=== PATIENT | female | born 1935 | race African-American/Black ===

== ENCOUNTER 2018-10-31 12:23 | Emergency (ER) | payer MEDICARE, MEDICAID ==
[2018-10-31 13:27] LABS: Bilirubin Negative (Negative); Blood, Urine Negative (Negative); Clarity CLEAR (Clear); Glucose, Urine (Dipstick) 100 mg/dL (Negative); Leukocyte Small (Negative); Nitrite Positive (Negative); Protein, Urine (Dipstick) Negative (Neg-Trace)
[2018-10-31 13:29] LABS: Bacteria/HPF 4+ HPF (None Seen); Hyaline Casts/LPF 0-3 HYALINE CAST LPF (0-3 Hyaline); Pathc Cast-AUWi Flag 0.29 (0-2.49); RBC/HPF 0-3 HPF (0-3)
[2018-10-31 13:42] LABS: Transitional Epithelial 0-3 HPF (0-3)
--- NOTE | 2018-10-31 14:21 | CT ---
CT BRAIN: Date: 10/31/18 PROVIDED CLINICAL HISTORY: Altered mental status. FINDINGS: Comparison made with the study dated 09/28/14. The ventricular system is unchanged in size and morphology. There is no evidence for intracranial hem orrhage or mass effect. Development of encephalomalacia involving the right parietooccipital region c ompatible with interval but now remote infarction. There is no shift to the midline structures. The b asilar cisterns appear patent. The extracranial soft tissues and osseous structures demonstrate an un remarkable CT appearance. Left cerebellar hemispheric infarction is again noted. IMPRESSION: No evidence for intracranial hemorrhage or mass effect. POS: [facility]
[2018-10-31 14:26] LABS: #Eosinphils 0.1 thou/uL (0.0-0.7); #Lymphocytes 1.9 thou/uL (1.20-3.40); #Monocytes 0.5 thou/uL (0.11-0.59); #Neutrophils 3.5 thou/uL (1.40-6.50); %Basophils 0.7 % (0.0-1.0); %Eosinophils 1.6 % (0.0-10.0); %Lymphocytes 31.7 % (21.0-51.0); %Monocytes 8.7 % (0.0-10.0); %Neutrophils 57.3 % (42.0-75.0); Hemoglobin 13.7 g/dL (12.0-16.0); Mean Corpuscular HGB CONC 32.9 g/dL (32.0-36.0); Mean Corpuscular Hemoglobin 29.6 pg (27.0-31.0); Mean Platelet Volume 7.8 fL (7.4-10.4); Platelet Count 185 thou/uL (130-400); RBC Distribution Width 11.7 % (11.5-14.5); Red Blood Cell (RBC) Count 4.63 mill/uL (4.20-5.40); White Blood Cell (WBC) Count 6.1 thou/uL (4.8-10.8)
--- NOTE | 2018-10-31 14:28 | RAD ---
RADIOGRAPH CHEST 1 VIEW: HISTORY: An 82-year-old female with episode of unresponsiveness. FINDINGS: There are no air space densities, pulmonary edema, pneumothorax, or cardiomegaly. The lateral costop hrenic angles are sharp. IMPRESSION: No acute cardiopulmonary findings. jn [] POS: [facility]
[2018-10-31 14:45] LABS: ALT (SGPT) 18 U/L (8-55); AST (SGOT) 22 U/L (5-34); Albumin 3.9 g/dL (3.4-4.8); Alkaline Phosphatase 96 U/L (40-150); Anion Gap 16 mmol/L (10-20); BUN (Urea Nitrogen) 27 mg/dL (9.8-20.1); Bilirubin, Total 0.5 mg/dL (0.2-1.2); Calc. Creatinine Clearance 0 mL/min (70-130); Calcium 9.7 mg/dL (7.8-10.44); Carbon Dioxide 23 mmol/L (23-31); Chloride 105 mmol/L (98-107); Estimated GFR-MDRD 83; Globulin 3.7 g/dL (2.4-3.5); Glucose 86 mg/dL (83-110); Potassium 4.4 mmol/L (3.5-5.1); Protein, Total 7.6 g/dL (6.0-8.3); Sodium 140 mmol/L (136-145)
== END 2018-10-31 16:10 ==
LOC: ERS 12:23
DX: N39.0 Urinary tract infection, site not specified (principal); K21.9 Gastro-esophageal reflux disease without esophagitis; I11.0 Hypertensive heart disease with heart failure; Z86.73 Personal history of transient ischemic attack (TIA), and cerebral infarction without residual deficits; G40.909 Epilepsy, unspecified, not intractable, without status epilepticus; G47.00 Insomnia, unspecified; F03.90 Unspecified dementia, unspecified severity, without behavioral disturbance, psychotic disturbance, mood disturbance, and anxiety; Z87.891 Personal history of nicotine dependence; Z79.899 Other long term (current) drug therapy
CPT/HCPCS: 36415; 51701; 70450; 71045; 80053; 81003; 81015; 84484; 85025; 87077; 87086; 87186; 93005; 96360; A4353

== ENCOUNTER 2018-12-28 17:32 | Observation (INO) | payer MEDICARE, MEDICAID ==
[2018-12-28] MEDS ORDERED: Lidocaine 1% w/Epinephrine 1:100K 20 ML VIAL ONE (19:43)
--- NOTE | 2018-12-28 19:43 | RAD ---
RADIOGRAPH RIGHT HAND THREE VIEWS: History: 83-year-old female status post crush injury and laceration to right digits. FINDINGS: There is severe osteopenia. There are acute, mildly displaced fractures at the mid diaphysis of the f ourth distal phalanx, and distal tuft of the third distal phalanx. No dislocation. IMPRESSION: Acute, traumatic mildly displaced fractures of the third and fourth distal phalanges. POS: [facility]
[2018-12-28] MEDS ORDERED: Ketamine 50 MG/ML (10ML VIAL) ONE (19:47)
[2018-12-28] MEDS ORDERED: Lorazepam 2 MG/ML VIAL ONE (20:14)
[2018-12-28] MEDS ORDERED: CEFAZOLIN 1 GM VIAL ONE (20:46)
[2018-12-28] MEDS ORDERED: Bacitracin Zinc 1 Packet ONE (21:15)
[2018-12-28] MEDS ORDERED: Adacel (T-DAP) 0.5 ML SYRINGE ONE (21:16)
[2018-12-28 22:44] LABS: #Eosinphils 0.1 thou/uL (0.0-0.7); #Lymphocytes 1.7 thou/uL (1.20-3.40); #Monocytes 0.3 thou/uL (0.11-0.59); #Neutrophils 2.5 thou/uL (1.40-6.50); %Basophils 0.8 % (0.0-1.0); %Eosinophils 1.5 % (0.0-10.0); %Lymphocytes 37.4 % (21.0-51.0); %Monocytes 6.3 % (0.0-10.0); %Neutrophils 54.1 % (42.0-75.0); Hemoglobin 12.9 g/dL (12.0-16.0); Mean Corpuscular HGB CONC 32.4 g/dL (32.0-36.0); Mean Corpuscular Hemoglobin 29.4 pg (27.0-31.0); Mean Corpuscular Volume 90.8 fL (78.0-98.0); Mean Platelet Volume 8.1 fL (7.4-10.4); Platelet Count 177 thou/uL (130-400); RBC Distribution Width 11.6 % (11.5-14.5); White Blood Cell (WBC) Count 4.6 thou/uL (4.8-10.8)
[2018-12-28 23:10] LABS: ALT (SGPT) 16 U/L (8-55); AST (SGOT) 20 U/L (5-34); Albumin 3.8 g/dL (3.4-4.8); Alkaline Phosphatase 81 U/L (40-150); Anion Gap 12 mmol/L (10-20); BUN (Urea Nitrogen) 26 mg/dL (9.8-20.1); Bilirubin, Total 0.5 mg/dL (0.2-1.2); Calc. Creatinine Clearance 0 mL/min (70-130); Calcium 9.6 mg/dL (7.8-10.44); Carbon Dioxide 26 mmol/L (23-31); Chloride 107 mmol/L (98-107); Estimated GFR-MDRD 76; Globulin 3.2 g/dL (2.4-3.5); Glucose 122 mg/dL (83-110); Magnesium 1.9 mg/dL (1.6-2.6); Sodium 141 mmol/L (136-145)
--- NOTE | 2018-12-28 23:28 | RAD ---
CHEST ONE VIEW: Indication: History of chest pain, emergency examination. Comparison: 10-31-18 FINDINGS: The lungs are clear. Heart size is within normal limits. There are stable vascular calcifications inv olving the aortic arch. A chest wall pacer pad overlies the right upper hemithorax. No acute osseous abnormality is evident. IMPRESSION: No acute cardiopulmonary abnormality. POS: [facility]
[2018-12-29] MEDS ORDERED: Ketorolac Tromethamine 30 MG/ML VIAL ONE (01:39)
[2018-12-29] MEDS ORDERED: Acetaminophen 325 MG TAB PO PRN (09:28)
[2018-12-29] MEDS ORDERED: traMADol HCl 50 MG TAB PO PRN (09:33)
--- NOTE | 2018-12-29 10:41 | HP ---
CHIEF COMPLAINT: Right hand injury/laceration. 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 The patient is unable to give any history due to medical condition and the following history was obtained from review of medical record. The patient reportedly got injured while wheeling her wheelchair through the dog and got both 3rd and 4th digits of right hand crushed by the dog. ED physician following discussion with orthopedic doctor, I decided to do suturing of the laceration. This was done with ketamine injection and the patient wants to be discharged to follow up with the orthopedic doctor. However, about 1 hour after the procedure, the patient developed unresponsiveness and bradycardia with heart rate down to 30. The patient was put in a Trendelenburg position, and subsequently heart rate bounced back and mental status returned to baseline. Because of the bradycardic episode, she was admitted for evaluation and observation. It was also reported that the patient had a syncopal episode in 09/2018. The patient currently looked stable, but cannot voice any complaint. PAST MEDICAL HISTORY: 1. Hypertension. 2. Gastroesophageal reflux disease. 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 4. Epilepsy. 5. Hypokalemia. 6. Peripheral vascular disease. 7. Depression. 8. Anxiety. 9. Dementia. 10. Psychosis. PAST SURGICAL HISTORY: 1. Hysterectomy. 2. . 3. Gallstone removal surgery. FAMILY HISTORY: Cannot be obtained due to the patient's condition, but it is noncontributory. SOCIAL HISTORY: The patient lives in a retirement. She is said to be a former smoker, but quit in the last year. No current alcohol or drug use. ALLERGIES: NO KNOWN DRUG ALLERGIES. HOME MEDICATIONS: It is very unclear at this time, but it is reported that the patient is on the following medications. 1. Acetaminophen 1000 mg q.6 p.r.n. 2. Cyanocobalamin (vitamin B12) 100 mcg subcutaneously daily. 3. Donepezil 10 mg daily at bedtime. 4. Hydroxyzine 25 mg p.o. at bedtime. 5. Meloxicam 7.5 mg daily. 6. Metoprolol 25 mg b.i.d. 7. Potassium 20 mEq b.i.d. 8. Tolterodine tartrate 4 mg p.o. daily. 9. Aspirin 81 mg daily. 10. Plavix 75 mg daily. 11. Crestor 20 mg daily. 12. Tramadol 50 mg q.6 p.r.n. for pain. PHYSICAL EXAMINATION: VITAL SIGNS: BP 140/86, pulse 81, respiratory rate 18, and SpO2 of 100% on room air. GENERAL: Elderly female, in no obvious distress. Afebrile, anicteric, and acyanotic. HEENT: Normocephalic, atraumatic. Pupils are reacting to light. Oral mucosa is moist. RESPIRATORY: Good air entry bilaterally with no obvious crackles or rhonchi or use of accessory muscles. CARDIOVASCULAR: Regular rhythm and rate with normal heart sounds 1 and 2. No murmur was appreciated. GI: Abdomen is full, soft, nontender, nondistended with normal bowel sounds. EXTREMITIES: Right hand dressing noted. Otherwise, left hand and upper limb fixed flexion deformity noted. Lower extremities otherwise are grossly normal looking with no edema. NEUROLOGIC: Awake. The patient is not very cooperative. She is not obeying commands. She is nonverbal. Cranial nerves 2 through 12 are grossly intact. The patient moves all extremities spontaneously. Left-sided hemiparesis with fixed flexion deformity of the left upper extremity noted. DIAGNOSTIC DATA: CMP showed sodium 141, potassium 4.0, chloride 107, CO2 of 26, BUN 26, creatinine 0.86, glucose 122, and calcium 9.6. Magnesium 1.9. Total bilirubin 0.5, AST 20, ALT 16, alkaline phosphatase 81, total protein 7.0, and albumin 3.8. CBC showed WBC count of 4.6, hemoglobin of 12.9, MCV 90.8, and platelets 177. EKG showed normal sinus rhythm with rate of 65. No acute ischemic changes were noted. Of note, this EKG was performed after the unresponsive and bradycardic episode. Chest x-ray showed no acute cardiopulmonary abnormality with heart size within normal limits and lungs clear. Right hand 3-view x-ray showed acute traumatic mildly displaced fractures of the 3rd and 4th distal phalanges. ASSESSMENT: 1. Acute traumatic displaced fracture of the 3rd and 4th distal phalanges (open fracture). 2. Laceration involving the right 3rd and 4th distal phalanges. 3. Acute transient bradycardic episodes: This most likely is vasovagal or medication induced given that it occurred 1 hour after injection of ketamine for conscious sedation. History of prior syncopal episode is consistent with vasovagal. 4. Prior cerebrovascular accident with residual left-sided weakness and aphasia. 5. Dementia with behavioral changes. 6. History of hypertension. 7. Gait instability, on wheelchair bound at baseline. 8. History of depression and anxiety. 9. History of epilepsy. PLAN: 1. We will admit the patient for observation in the telemetry floor. 2. We will consult Cardiology for input about the acute episode of bradycardia. 3. We will start the patient on antibiotic therapy given open fracture. 4. The patient will follow up with orthopedic doctor in the office. 5. We will reconcile home medication and restart most of them. 6. We will hold metoprolol for now until seen by Cardiology. 7. DVT prophylaxis with Lovenox. 8. Code status: Full code for now. I discuss with the durable power of digital campaign specialist. Anticipate discharge back to the retirement in a day. Job ID: [id number]
--- NOTE | 2018-12-29 19:44 | CON ---
DATE OF CONSULTATION: 12/29/2018 HISTORY OF PRESENT ILLNESS: The patient still remains in the emergency room awaiting a bed. She is an 83-year-old female, who has had some CVAs in the past. She apparently caught the 2 fingers of her right hand into a door was slammed and crushed and required suturing, I believe removal of the nails. She is to follow with Orthopedics. In the meantime, during the procedure, she had been given ketamine and apparently 45 minutes to an hour later, became unresponsive and had reportedly bradycardia. Then, the heart rate and blood pressure recovered when she was put in Trendelenburg. She has had, according to the family, some episodes in the past at the jail, where she also became unresponsive when she was lying down flat. She recovered, this may be due to hypotension or may have been due to reaction to the ketamine, but obviously in the jail, this is not due to ketamine reactions, as it has obviously never been administered. She has had these episodes in the past. Again in October and November, she had an episode of a urinary tract infection. Also, apparently at that time had a syncopal episode. She does have a history of the multiple CVAs in the past and resides in the jail. At this time, she appears to be stable. Her heart rate and blood pressure are within normal limits. PAST MEDICAL HISTORY: Significant for multiple CVAs, which her family describes as being mini-strokes, but she does have some left hemiparesis, especially involving the upper extremity. She also has some problems speaking. She has had cholecystectomy. She has had C-sections. She does have a history of hypertension. She has depression and anxiety. SOCIAL HISTORY: She is a . She is in the jail. She smoked in the past, but stopped about 6 or 7 years ago. She has no alcohol use. FAMILY HISTORY: Noncontributory. ALLERGIES: NONE. MEDICATIONS: According to the records, she is taking potassium, zinc oxide, and Extra-Strength Tylenol. She takes Macrobid, acyclovir, aspirin, and docusate sodium. She is on famotidine, Keppra, metoprolol, nystatin, multivitamins, and Plavix. REVIEW OF SYSTEMS: She is unable to give a complete review of systems, but the family is at the bedside and there were no complaints of HEENT, pulmonary, GI or and only complaint was of occasional syncope and she also has had a history of frequent urinary tract infections. PHYSICAL EXAMINATION: GENERAL: Reveals an elderly ill-appearing female, who does not give any information herself. It is all from the daughter. VITAL SIGNS: Her blood pressure 99/51, heart rate is 98 and regular, and respiratory rate is about 16 at this time. HEENT: Shows head to be normocephalic and atraumatic. Carotid pulses are decreased. I cannot hear bruits on either side, actually could not even hear carotid sounds. There were no bruits noted. CHEST: Clear to auscultation, but she has decreased inspiratory effort. CARDIOVASCULAR: She has a regular rate and rhythm. Normal S1 and S2. I cannot hear an S3 nor an S4. ABDOMEN: Soft and nontender. Positive bowel sounds are present. EXTREMITIES: Show no clubbing, cyanosis, or edema. I cannot palpate pedal pulses and popliteal pulses are very difficult to palpate. Femoral pulses were present. She has decreased motion of the left upper extremity. NEUROLOGIC: She has evidence of previous CVAs in the past with left hemiparesis. SKIN: Warm and dry. IMPRESSION: 1. Episode of syncope, which may be due to the effects of the ketamine or maybe due just to hypotension or vagal response due to pain. This is a very short duration. Apparently, according to the rhythm strips, it was only lasted a couple of minutes that the heart rate decreased, at 2154 hours the heart rate was 59, at 2154 hours it was 66, at 2157 hours the heart rate was 42, at 2200 hours it was 36, and then at 2202 hours the heart rate was back up to 69. At the time of the bradycardia, she had a junctional rhythm, but then recovered back to a sinus rhythm. At this time, she is comfortable and remains in sinus rhythm, the heart rates in the 90s and shows actually no significant abnormalities. I suspect this is due to vagal response associated with her pain in her fingers as a result of the recent surgery that she had while here in the emergency room. At this time, it would be best is to continue to monitor her. If she does have further episodes, then she may eventually become a candidate for pacemaker. Since she is having other episodes in the jail, but if this is due to orthostasis, then most likely the pacemaker will not be of any benefit. 2. Hypertension, which is actually under good control and on the low side at this time, we will need to re-evaluate her medications. We may need to decrease some of her medications for the hypertension. At this time, I would hold her metoprolol or at least decrease the dose. She is on 25 mg b.i.d. at the jail and we could hold the medication at this time and treat her hypertension as needed. Should she become tachycardic, then obviously we can reinstate the beta blockers. We will be more than happy to continue to follow her hopefully overnight, but if she remains stable, then we just continue her medications. Job ID: [id number]
[2018-12-29] MEDS ORDERED: Bacitracin Zinc 1 Packet ONE (20:13)
[2018-12-29] MEDS ORDERED: traMADol HCl 50 MG TAB ONE (20:53)
[2018-12-29] MEDS ORDERED: Rosuvastatin 20 MG TAB PO SCH (21:00)
--- NOTE | 2018-12-30 08:59 | DIS ---
DATE OF ADMISSION: 12/28/2018 DATE OF DISCHARGE: 12/29/2018 PRIMARY CARE PHYSICIAN: Wm King MD REASON FOR ADMISSION: Bradycardic episode in the emergency room. DIAGNOSES AT DISCHARGE: 1. Acute transient bradycardic episode with recurrences from the long term. 2. Acute traumatic displaced fracture, 3rd and 4th distal phalanges with laceration. 3. Prior cerebrovascular accident. 4. Dementia. 5. Hypertension. PROCEDURES: None. CONSULTATIONS: Cardiology, Dr. Stephenson. SUMMARY OF HOSPITAL COURSE: This patient was admitted earlier today in the emergency room. The patient had come in from the long term after a laceration to her fingers getting them jammed in a door. See the history of present illness from earlier in the day. She got ketamine and had a bradycardic episode about an hour later. Dr. Stephenson was consulted. She determined this was possibly a Valsalva reaction, but that patient could benefit from a heart monitor due to the recurrent nature of it in the long term. She is recommending that the patient followup in her clinic to get the heart monitor placed and recommended that we decrease the beta-saleem a little bit, though the patient's pulse has rebounded now to the 90s and is not bradycardic anymore, was only bradycardic for a few seconds. Otherwise, the patient is stable and is being discharged back to the long term. DISCHARGE MANAGEMENT: Discharged back to long term. ACTIVITY: As tolerated. DIET: Healthy heart, low-sodium diet. THERAPY: Wound care in the long term. FOLLOW UP: Follow up with Dr. Warner in 3 days about the open fractures of the fingers and with Dr. Stephenson as soon as possible to get the monitor placed. DISCHARGE MEDICATIONS: See H and P for the long term medications. We are just decreasing the metoprolol succinate to 12.5 mg daily and starting Keflex 500 mg 3 times a day for 10 days, 30 capsules dispensed. Job ID: [id number]
[2018-12-30] MEDS ORDERED: Aspirin Chewable 81 MG TAB PO SCH (09:00)
[2018-12-30] MEDS ORDERED: Clopidogrel Bisulfate 75 MG TAB PO SCH (09:00)
[2018-12-30] MEDS ORDERED: Enoxaparin Sodium 40 MG/0.4 ML SYRINGE SC SCH (09:00)
[2018-12-30] MEDS ORDERED: levETIRAcetam 500 mg/5 ml Oral Solution PO SCH (09:00)
--- NOTE | 2019-01-03 11:57 | EKG ---
Test Reason : BRADYCARDIA Blood Pressure : / mmHG Vent. Rate : 065 BPM Atrial Rate : 065 BPM P-R Int : 174 ms QRS Dur : 088 ms QT Int : 478 ms P-R-T Axes : 065 034 018 degrees QTc Int : 497 ms Normal sinus rhythm Possible Left atrial enlargement Prolonged QT Abnormal ECG Confirmed by ERIS COHN DO [id number]), scientific editor LUCY BROWN ([id number] on 01/03/2019 11:57:09 AM Referred By: SUKI Confirmed By:EIRS COHN DO
== END 2018-12-29 21:19 ==
LOC: ERS 17:32 → ERHOLD 22:40
PROVIDERS: ADMIT Internal Medicine; ATTEND Internal Medicine
DX: R00.1 Bradycardia, unspecified (principal); S62.632A Displaced fracture of distal phalanx of right middle finger, initial encounter for closed fracture; S62.634A Displaced fracture of distal phalanx of right ring finger, initial encounter for closed fracture; S61.212A Laceration without foreign body of right middle finger without damage to nail, initial encounter; S61.214A Laceration without foreign body of right ring finger without damage to nail, initial encounter; I69.920 Aphasia following unspecified cerebrovascular disease; I69.954 Hemiplegia and hemiparesis following unspecified cerebrovascular disease affecting left non-dominant side; I10 Essential (primary) hypertension; I73.9 Peripheral vascular disease, unspecified; K21.9 Gastro-esophageal reflux disease without esophagitis; G40.909 Epilepsy, unspecified, not intractable, without status epilepticus; F32.9 Major depressive disorder, single episode, unspecified; F41.9 Anxiety disorder, unspecified; F29 Unspecified psychosis not due to a substance or known physiological condition; F03.91 Unspecified dementia, unspecified severity, with behavioral disturbance; Z90.710 Acquired absence of both cervix and uterus; Z87.891 Personal history of nicotine dependence; Z79.1 Long term (current) use of non-steroidal anti-inflammatories (NSAID); Z79.02 Long term (current) use of antithrombotics/antiplatelets; Z79.82 Long term (current) use of aspirin; Z79.899 Other long term (current) drug therapy; Z98.890 Other specified postprocedural states; X58.XXXA Exposure to other specified factors, initial encounter
CPT/HCPCS: 12002; 71045; 73140; 80053; 83735; 83880; 84484; 85025; 90471; 90715; 93005; 96361; 96365; 96375; 99152; 99153; 99284; G0378; 36415; J0690; J1885; J2001; J2060

== ENCOUNTER 2019-05-12 13:00 | Inpatient (IN) | payer MEDICARE, MEDICAID ==
[2019-05-12 13:49] LABS: Bacteria/HPF 4+ HPF (None Seen); Bilirubin Negative (Negative); Blood, Urine Trace (Negative); Clarity Clear (Clear); Glucose, Urine (Dipstick) 50 mg/dL (Negative); Leukocyte 25 Leu/uL (Negative); Nitrite 2+ (Negative); Protein, Urine (Dipstick) 30 mg/dL (Neg-Trace); RBC/HPF 0-3 HPF (0-3); Squamous Epithelial 0-3 HPF (0-3)
[2019-05-12] MEDS ORDERED: Ondansetron PF 4 MG/2 ML Vial ONE (14:15)
[2019-05-12 14:17] LABS: #Lymphocytes 1.7 thou/uL (1.20-3.40); #Monocytes 0.7 thou/uL (0.11-0.59); %Basophils 0.1 % (0.0-1.0); %Eosinophils 0.5 % (0.0-10.0); %Lymphocytes 20.4 % (21.0-51.0); %Monocytes 8.1 % (0.0-10.0); %Neutrophils 70.9 % (42.0-75.0); Hemoglobin 14.6 g/dL (12.0-16.0); Mean Corpuscular HGB CONC 32.1 g/dL (32.0-36.0); Mean Corpuscular Hemoglobin 29.2 pg (27.0-31.0); Mean Corpuscular Volume 90.8 fL (78.0-98.0); Mean Platelet Volume 7.6 fL (7.4-10.4); Platelet Count 216 thou/uL (130-400); RBC Distribution Width 12.2 % (11.5-14.5); Red Blood Cell (RBC) Count 4.99 mill/uL (4.20-5.40); White Blood Cell (WBC) Count 8.4 thou/uL (4.8-10.8)
[2019-05-12 14:40] LABS: CK (CPK) 111 U/L (29-168); Lipase 9 U/L (8-78)
[2019-05-12 14:53] LABS: ALT (SGPT) 13 U/L (8-55); AST (SGOT) 25 U/L (5-34); Albumin 4.5 g/dL (3.4-4.8); Alkaline Phosphatase 100 U/L (40-150); Anion Gap 17 mmol/L (10-20); BUN (Urea Nitrogen) 29 mg/dL (9.8-20.1); Calc. Creatinine Clearance 0 mL/min (70-130); Calcium 10.5 mg/dL (7.8-10.44); Carbon Dioxide 24 mmol/L (23-31); Chloride 102 mmol/L (98-107); Estimated GFR-MDRD 75; Globulin 3.9 g/dL (2.4-3.5); Glucose 112 mg/dL (83-110); Potassium 5.3 mmol/L (3.5-5.1); Protein, Total 8.4 g/dL (6.0-8.3); Sodium 138 mmol/L (136-145)
[2019-05-12] MEDS ORDERED: Acetaminophen 325 MG Suppository ONE (14:53)
[2019-05-12] MEDS ORDERED: Acetaminophen 650 MG Suppository ONE (14:53)
--- NOTE | 2019-05-12 15:20 | RAD ---
EXAM: CHEST ONE VIEW: 05/12/19 HISTORY: Nausea and vomiting. COMPARISON: 12/28/18. FINDINGS: Inspiration is somewhat less than optimal. No confluent pneumonia, overt edema, or pleural effusion. IMPRESSION: Less than optimal inspiration. Mild vascular congestion but no confluent pneumonia or other acute pro cess. Atherosclerosis of the aorta. Stable from prior study. POS: [facility]
[2019-05-12] MEDS ORDERED: Acetaminophen 650 MG Suppository PR PRN (16:15)
--- NOTE | 2019-05-12 16:54 | HP ---
PRIMARY CARE PROVIDER: Dr. King. The patient referred to [facility] by [place] [facility] for UTI with sepsis. PRESENT ILLNESS: The patient has a history of stroke, dementia, left-sided hemiplegia, aphasic, had trouble with regurgitating her food today. She was noted to be febrile. She was brought to the emergency room, where she was found to have an elevated temperature and pyuria with evidence of urinary tract infection, lactic acid elevated, and hyperkalemia. She is also tachycardic. PAST MEDICAL HISTORY: Pertinent for; 1. Stroke in the past with a dense left hemiplegia and aphasia. 2. Hypertension. 3. Gastroesophageal reflux disease. 4. History of seizure disorder. 5. Peripheral arterial disease. 6. Anxiety. 7. Depression. PAST SURGICAL HISTORY: She has had; 1. Hysterectomy. 2. . 3. Gallbladder surgery. CURRENT MEDICATIONS: 1. Tramadol 50 mg p.o. q.6 h. p.r.n. 2. Hydroxyzine 25 mg p.o. at bedtime. 3. Tolterodine tartrate ER 4 mg a day. 4. Crestor 20 mg a day. 5. KCl 20 mEq twice a day. 6. Metoprolol 12.5 mg a day. 7. Mobic 7.5 mg a day. 8. Donepezil 10 mg a day. 9. Plavix 75 mg a day. 10. Aspirin 81 mg a day. 11. Deoq-qwd-pbqzaqy medicines. ALLERGIES: SHE HAS NO KNOWN DRUG ALLERGIES. FAMILY HISTORY: No inherited diseases per her daughter who is at bedside. SOCIAL HISTORY: Resident of [facility]. No alcohol, tobacco, or illicit drugs. Full code status, confirmed by her daughter who is at bedside. REVIEW OF SYSTEMS: Unobtainable due to her nonverbal status and aphasia. PHYSICAL EXAMINATION: VITAL SIGNS: Her temperature measured in the ER was 100.6, her pulse ranged from 103 to 117, blood pressure ranged from 135/69 to 178/50, respirations were 16 to 20, room air sat was 98. HEAD, EYES, EARS, NOSE, AND THROAT: Pupils are equal, round, and reactive. Extraocular movements grossly intact. Sclerae are white. Tympanic membranes clear. Nose is clear. Mouth is dry. Unable to evaluate further as it was difficult to get her to open her mouth at all. NECK: No adenopathy, thyromegaly, or bruits. CHEST: Clear to auscultation and percussion. HEART: Had a tachycardic rhythm. First and second heart sounds were accentuated. There are no murmurs or gallops. ABDOMEN: Soft. Bowel sounds are normal. There is no hepatosplenomegaly. No mass. No rebound. EXTREMITIES: No cyanosis, clubbing, or edema. PULSES: Carotid, radial, and femoral pulses are intact. SKIN: Warm and dry. LYMPHATIC SURVEY: Negative for nodes in her neck, groin, or axilla. NEUROLOGIC: Cranial nerves 2 through 12 are intact. Moves right arm and leg spontaneously as she has a dense left hemiplegia with a contracted left arm. Deep tendon reflexes increased on the left. Toes neutral. DIAGNOSTIC STUDIES: EKG revealed a sinus tachycardia with no specific ST-T changes. Chest x-ray revealed poor inspiration with no cardiomegaly, CHF, or infiltrate, reviewed by me. LABORATORY DATA: Sodium 138, potassium 5.3, BUN 29, CO2 of 24, creatinine 0.87, and glucose 112. Lactic acid 2.6. Calcium 10.5. Liver function tests normal. Urinalysis showed a pyuria with a positive leukocyte esterase and positive nitrite. Hematology; white count was 8.4 without a definitive left shift, hemoglobin is 14.6, and platelet count is 216. ADMITTING DIAGNOSES: 1. Sepsis syndrome with tachycardia, fever, lactic acidosis, and pyuria. 2. Urinary tract infection. 3. Hypertension. 4. Dementia. 5. Left hemiplegia from old cerebrovascular accident. 6. Mild hyperkalemia. 7. Nausea and vomiting. PLAN: The patient will be placed in the hospital on IV fluids. She has already received an IV bolus in the emergency room. She will be continued on IV normal saline at 100 mL an hour. I suspect that her problem is related to her urinary tract; however, since this is not absolutely clear, blood and urine cultures have been drawn and she will be given broad-spectrum antibiotics with cefepime and vancomycin. She will be given clear liquids if she tolerates it. IV Zofran will be used for nausea and vomiting control. Rectal set of medicine will be use for temperature. I will attempt to continue her metoprolol 12.5 mg daily, Aricept 10 mg daily, Plavix 75 mg daily, and aspirin 81 mg daily. The other medicines will be held. Job ID: [id number]
[2019-05-12 18:24] LABS: Lactic Acid 1.6 mmol/L (0.5-2.2)
[2019-05-12 18:51] VITALS: BMI 29.7
[2019-05-12] MEDS ORDERED: Vancomycin HCl 1 GM in Sodium Chloride 0.9% 250 ML 300 ML IVPB SCH (21:00)
[2019-05-12] MEDS: Cefepime 2 GM in Sodium Chloride 0.9% 100 ML IVPB SCH (21:42)
[2019-05-12] MEDS: Donepezil HCl 10 MG TAB PO SCH (21:43)
[2019-05-12] MEDS: Sodium Chloride 0.9% 1,000 ML IV SCH (21:51)
[2019-05-13] MEDS: Sodium Chloride 0.9% 1,000 ML IV SCH ×3 (04:44→23:15)
[2019-05-13 05:40] LABS: #Lymphocytes 1.3 thou/uL (1.20-3.40); #Monocytes 0.7 thou/uL (0.11-0.59); #Neutrophils 4.2 thou/uL (1.40-6.50); %Basophils 0.2 % (0.0-1.0); %Eosinophils 0.2 % (0.0-10.0); %Lymphocytes 20.6 % (21.0-51.0); %Monocytes 10.8 % (0.0-10.0); %Neutrophils 68.2 % (42.0-75.0); Hemoglobin 13.4 g/dL (12.0-16.0); Mean Corpuscular HGB CONC 31.8 g/dL (32.0-36.0); Mean Corpuscular Hemoglobin 29.2 pg (27.0-31.0); Mean Corpuscular Volume 91.7 fL (78.0-98.0); Mean Platelet Volume 7.9 fL (7.4-10.4); Platelet Count 169 thou/uL (130-400); Red Blood Cell (RBC) Count 4.58 mill/uL (4.20-5.40); White Blood Cell (WBC) Count 6.1 thou/uL (4.8-10.8)
[2019-05-13 06:05] LABS: Anion Gap 13 mmol/L (10-20); BUN (Urea Nitrogen) 24 mg/dL (9.8-20.1); Calc. Creatinine Clearance 64 mL/min (70-130); Calcium 9.4 mg/dL (7.8-10.44); Carbon Dioxide 21 mmol/L (23-31); Chloride 106 mmol/L (98-107); Estimated GFR-MDRD 85; Glucose 123 mg/dL (83-110); Potassium 4.1 mmol/L (3.5-5.1); Sodium 136 mmol/L (136-145)
[2019-05-13] MEDS: Ondansetron PF 4 MG/2 ML Vial IVP PRN (07:44)
--- NOTE | 2019-05-13 08:39 | PDOC.HOSPP ---
- Subjective non-verbal Subjective: vomiting this AM - Objective Vital Signs & Weight: Vital Signs (12 hours) Temp Pulse Resp BP Pulse Ox 05/13/19 03:00 98 F 97 20 141/63 H 20 L 05/12/19 23:30 107 H 142/90 H 05/12/19 21:42 88 140/64 05/12/19 21:15 97 Weight Weight 168 lb 3.2 oz Result Diagrams: 05/13/19 05:13 05/13/19 05:13 ROS - Review of Systems All systems: All other ROS were reviewed and found negative. - Medication Medications: Active Medications Generic Name Dose Route Start Last Admin Trade Name Freq PRN Reason Stop Dose Admin Donepezil HCl 10 mg 05/12/19 21:00 05/12/19 21:43 Aricept PO 10 mg HS LUIS Administration Cefepime HCl 2 gm/ Sodium 100 mls @ 200 mls/hr 05/12/19 21:00 05/12/19 21:42 Chloride IVPB 100 mls Q12HR LUIS Administration Sodium Chloride 1,000 mls @ 100 mls/hr 05/12/19 16:15 05/13/19 04:44 Normal Saline 0.9% IV Not Given .Q10H LUIS Ondansetron HCl 4 mg 05/12/19 16:15 05/13/19 07:44 Zofran IVP 4 mg Q6H PRN Administration Nausea/Vomiting Sodium Chloride 10 ml 05/12/19 21:00 05/12/19 21:43 Flush - Normal Saline IVF 10 ml Q12HR LUIS Administration - Exam Neck: no JVD Heart: RRR, no murmur Respiratory: CTAB, no wheezes, no rales Gastrointestinal: normal bowel sounds, no palpable masses, tender to palpation Extremities: no edema Hosp A/P (1) Sepsis Code(s): A41.9 - SEPSIS, UNSPECIFIED ORGANISM Status: Acute Qualifiers: Sepsis type: Escherichia coli Qualified Code(s): A41.51 - Sepsis due to Escherichia coli [E. coli] (2) UTI (urinary tract infection), bacterial Code(s): N39.0 - URINARY TRACT INFECTION, SITE NOT SPECIFIED; A49.9 - BACTERIAL INFECTION, UNSPECIFIED Status: Acute (3) Nausea & vomiting Code(s): R11.2 - NAUSEA WITH VOMITING, UNSPECIFIED Status: Acute Qualifiers: Vomiting type: unspecified (4) HTN (hypertension) Code(s): I10 - ESSENTIAL (PRIMARY) HYPERTENSION Status: Acute Qualifiers: Hypertension type: essential hypertension Qualified Code(s): I10 - Essential (primary) hypertension (5) Dementia Code(s): F03.90 - UNSPECIFIED DEMENTIA WITHOUT BEHAVIORAL DISTURBANCE Status: Acute Qualifiers: Dementia type: unspecified type Dementia behavioral disturbance: without behavioral disturbance Qualified Code(s): F03.90 - Unspecified dementia without behavioral disturbance - Plan cont iv fluids. DC vanc, cont cefepime. 2v abd XR, amylase, liase. may need CT abd
--- NOTE | 2019-05-13 09:51 | RAD ---
2 views of abdomen: 05/13/2019 HISTORY: Vomiting FINDINGS: Multiple clips are noted in the right upper quadrant. Decubitus imaging with the right side up demonstrates no evidence for free intraperitoneal air. There is gaseous distention of the stomach. There are gas-filled dilated small bowel loops within the midabdomen with air-fluid levels on the decubitus view. Dilated small bowel measures up to 5 cm in transverse dimension. Findings are suspicious for small bowel obstruction or ileus. CT examination of abdomen/pelvis suggested. IMPRESSION: Dilated gas-filled stomach and small bowel with air-fluid levels on decubitus imaging sug gesting small bowel obstruction or significant ileus. CT examination suggested.
[2019-05-13] MEDS: Cefepime 2 GM in Sodium Chloride 0.9% 100 ML IVPB SCH ×2 (10:04→19:48)
[2019-05-13] MEDS: Enoxaparin Sodium 40 MG/0.4 ML SYRINGE SC SCH (10:05)
[2019-05-13] MEDS: hydrALAZINE 20 MG/ML VIAL SLOW IVP PRN (10:06)
[2019-05-13] MEDS ORDERED: ISOVUE-370 76%-LOCM 1 ML ONE (11:09)
[2019-05-13] MEDS: Clopidogrel Bisulfate 75 MG TAB PO SCH (12:24)
[2019-05-13] MEDS: Aspirin Chewable 81 MG TAB PO SCH (12:24)
[2019-05-13] MEDS ORDERED: Vancomycin HCl 1 GM in Premix Bag 1 BAG IVPB SCH (16:00)
--- NOTE | 2019-05-13 16:52 | PDOC.EVN ---
Event Note - Event Note Event Note: 2 v abd- sbo? CT adb ordered
--- NOTE | 2019-05-13 17:33 | CT ---
CT ABDOMEN AND PELVIS WITH IV CONTRAST: 05/13/19 HISTORY: Dilated loops of small bowel suggestive of small bowel obstruction noted on radiographs of the abdome n obtained earlier on today's date. COMPARISON: CT abdomen and pelvis on 09/30/14. FINDINGS: There is a trace left pleural effusion. Linear and parenchymal densities are seen at each lung base p robably related to atelectasis, although pneumonia at the left lung base cannot be entirely excluded. Vascular calcifications are seen in the lower thoracic aorta as well as involving the abdominal aorta and iliac arteries. Vascular calcifications in the coronary arteries are also present. Post cholecys tectomy changes are again seen. Patient's arms are down by the side limiting evaluation of the parenchymal organs, but the liver, spl een, atrophied pancreas, and bilateral adrenal glands demonstrate a grossly normal CT appearance. Sub centimeter too small to characterize hypodense lesions are again seen involving each kidney. Urinary bladder is partially distended and grossly normal in appearance. The uterus is not visualized which may be surgically absent. There is colonic diverticulosis. There is fluid filled and distended stomach with dilated fluid filled loops of small bowel. There are mildly thickened carcamo of loops of ileum seen within the right upper pelvis. These loops of small rosalinda wel are not dilated. However, dilated loops of small bowel are seen proximal to the areas of bowel wa ll thickening with loops of fluid filled bowel measuring up to 3.4 cm in diameter. No free fluid, fluid collection, or lymphadenopathy is seen in the abdomen or pelvis. Degenerative ch anges are seen in the spine. No other interval change from prior exam. IMPRESSION: 1. Partial small bowel obstruction with dilated fluid filled loops of proximal small bowel and d istention of the stomach with transition point seen in the pelvis at the level of bowel wall thickeni ng involving loops of ileum within the right pelvis. This may be related to nonspecific enteritis. No adjacent inflammatory changes are seen, and there is no fluid identified. 2. Trace left pleural effusion with probable bibasilar atelectasis, but infiltrate related to pn eumonitis left lung base cannot be excluded. 3. Post cholecystectomy changes. 4. Prominent vascular calcifications. 5. Colonic diverticulosis. 6. Hysterectomy. POS: [facility]
[2019-05-13] MEDS: Donepezil HCl 10 MG TAB PO SCH (19:50)
[2019-05-13 22:24] LABS: Magnesium 1.7 mg/dL (1.6-2.6); Potassium 3.7 mmol/L (3.5-5.1)
[2019-05-14 03:57] LABS: #Lymphocytes 1.1 thou/uL (1.20-3.40); #Monocytes 0.6 thou/uL (0.11-0.59); %Basophils 0.2 % (0.0-1.0); %Eosinophils 0.3 % (0.0-10.0); %Lymphocytes 16.3 % (21.0-51.0); %Monocytes 8.8 % (0.0-10.0); %Neutrophils 74.4 % (42.0-75.0); Hemoglobin 12.7 g/dL (12.0-16.0); Mean Corpuscular HGB CONC 34.3 g/dL (32.0-36.0); Mean Corpuscular Hemoglobin 30.8 pg (27.0-31.0); Mean Corpuscular Volume 89.7 fL (78.0-98.0); Mean Platelet Volume 7.3 fL (7.4-10.4); Platelet Count 164 thou/uL (130-400); RBC Distribution Width 11.9 % (11.5-14.5); Red Blood Cell (RBC) Count 4.14 mill/uL (4.20-5.40); White Blood Cell (WBC) Count 6.7 thou/uL (4.8-10.8)
[2019-05-14 04:17] LABS: Anion Gap 11 mmol/L (10-20); BUN (Urea Nitrogen) 23 mg/dL (9.8-20.1); Calc. Creatinine Clearance 64 mL/min (70-130); Calcium 9.6 mg/dL (7.8-10.44); Carbon Dioxide 22 mmol/L (23-31); Chloride 111 mmol/L (98-107); Estimated GFR-MDRD 85; Glucose 126 mg/dL (83-110); Potassium 3.8 mmol/L (3.5-5.1); Sodium 140 mmol/L (136-145)
[2019-05-14] MEDS: Ondansetron PF 4 MG/2 ML Vial IVP PRN (05:56)
[2019-05-14] MEDS: Enoxaparin Sodium 40 MG/0.4 ML SYRINGE SC SCH (08:25)
[2019-05-14] MEDS: Cefepime 2 GM in Sodium Chloride 0.9% 100 ML IVPB SCH ×2 (08:26→20:41)
[2019-05-14] MEDS: Clopidogrel Bisulfate 75 MG TAB PO SCH (08:27)
[2019-05-14] MEDS: Aspirin Chewable 81 MG TAB PO SCH (08:27)
--- NOTE | 2019-05-14 09:52 | PDOC.HOSPP ---
- Subjective non-verbal - Objective Vital Signs & Weight: Vital Signs (12 hours) Temp Pulse Resp BP Pulse Ox 05/14/19 08:23 148/83 H 05/14/19 07:30 100.8 F H 100 16 191/79 H 96 05/14/19 03:00 99.1 F 102 H 19 178/84 H 100 05/13/19 23:30 99 F 104 H 18 154/73 H 100 Weight Weight 168 lb 3.2 oz I&O: 05/13/19 05/14/19 05/15/19 06:59 06:59 06:59 Intake Total 2350 Output Total 250 Balance 2100 Result Diagrams: 05/14/19 03:48 05/14/19 03:48 Radiology Reviewed by me: Yes (CT abd partial SBO) ROS - Review of Systems All systems: All other ROS were reviewed and found negative. - Medication Medications: Active Medications Generic Name Dose Route Start Last Admin Trade Name Freq PRN Reason Stop Dose Admin Aspirin 81 mg 05/13/19 09:00 05/14/19 08:27 Aspirin Chewable PO Not Given DAILY LUIS Clopidogrel Bisulfate 75 mg 05/13/19 09:00 05/14/19 08:27 Plavix PO Not Given DAILY LUIS Donepezil HCl 10 mg 05/12/19 21:00 05/13/19 19:50 Aricept PO Not Given HS LUIS Enoxaparin Sodium 40 mg 05/13/19 09:00 05/14/19 08:25 Lovenox SC 40 mg 0900 LUIS Administration Hydralazine HCl 10 mg 05/12/19 20:33 05/13/19 10:06 Apresoline SLOW IVP 10 mg Q4H PRN Administration SBP Greater Than 180 Cefepime HCl 2 gm/ Sodium 100 mls @ 200 mls/hr 05/12/19 21:00 05/14/19 08:26 Chloride IVPB 100 mls Q12HR LUIS Administration Sodium Chloride 1,000 mls @ 100 mls/hr 05/12/19 16:15 05/13/19 23:15 Normal Saline 0.9% IV 1,000 mls .Q10H LUIS Administration Metoprolol Succinate 12.5 mg 05/13/19 09:00 05/14/19 08:27 Toprol Xl PO Not Given DAILY LUIS Ondansetron HCl 4 mg 05/12/19 16:15 07/25/19 05:56 Zofran IVP 4 mg Q6H PRN Administration Nausea/Vomiting Sodium Chloride 10 ml 05/12/19 21:00 05/14/19 08:26 Flush - Normal Saline IVF 10 ml Q12HR LUIS Administration - Exam Neck: no JVD Heart: RRR, no murmur Respiratory: CTAB Gastrointestinal: soft, normal bowel sounds, tender to palpation Extremities: no edema Hosp A/P (1) Sepsis Code(s): A41.9 - SEPSIS, UNSPECIFIED ORGANISM Status: Acute Qualifiers: Sepsis type: Escherichia coli Qualified Code(s): A41.51 - Sepsis due to Escherichia coli [E. coli] (2) UTI (urinary tract infection), bacterial Code(s): N39.0 - URINARY TRACT INFECTION, SITE NOT SPECIFIED; A49.9 - BACTERIAL INFECTION, UNSPECIFIED Status: Acute (3) Nausea & vomiting Code(s): R11.2 - NAUSEA WITH VOMITING, UNSPECIFIED Status: Acute Qualifiers: Vomiting type: unspecified (4) HTN (hypertension) Code(s): I10 - ESSENTIAL (PRIMARY) HYPERTENSION Status: Acute Qualifiers: Hypertension type: essential hypertension Qualified Code(s): I10 - Essential (primary) hypertension (5) Dementia Code(s): F03.90 - UNSPECIFIED DEMENTIA WITHOUT BEHAVIORAL DISTURBANCE Status: Acute Qualifiers: Dementia type: unspecified type Dementia behavioral disturbance: without behavioral disturbance Qualified Code(s): F03.90 - Unspecified dementia without behavioral disturbance (6) SBO (small bowel obstruction) Code(s): K56.609 - UNSP INTESTNL OBST, UNSP TO PARTIAL VERSUS COMPLETE OBST Status: Acute - Plan NGT to suction. cont iv fluids. cont iv anti bx for UTI. consider Gen Surg consult if no improvement
[2019-05-14] MEDS: Sodium Chloride 0.9% 1,000 ML IV SCH ×2 (09:58→18:33)
--- NOTE | 2019-05-14 11:40 | RAD ---
EXAM: Single view of the abdomen HISTORY: New NG tube placement; small bowel obstruction COMPARISON: CT abdomen/pelvis 05/13/2019 FINDINGS: Single view of the abdomen shows air-filled loops of both large and small bowel. An NG tube is seen in the stomach. Cholecystectomy clips are seen. The bones are unremarkable. IMPRESSION: NG tube located in the stomach.
[2019-05-14] MEDS: hydrALAZINE 20 MG/ML VIAL SLOW IVP PRN (12:46)
[2019-05-14] MEDS: Donepezil HCl 10 MG TAB PO SCH (19:00)
[2019-05-15] MEDS: Sodium Chloride 0.9% 1,000 ML IV SCH ×3 (04:48→16:30)
[2019-05-15] MEDS: hydrALAZINE 20 MG/ML VIAL SLOW IVP PRN ×2 (05:32→19:00)
[2019-05-15] MEDS: Clopidogrel Bisulfate 75 MG TAB PO SCH (07:18)
[2019-05-15] MEDS: Aspirin Chewable 81 MG TAB PO SCH (07:18)
[2019-05-15] MEDS: Cefepime 2 GM in Sodium Chloride 0.9% 100 ML IVPB SCH ×2 (08:26→21:06)
--- NOTE | 2019-05-15 14:05 | PRG ---
DATE OF SERVICE: 05/15/2019 SUBJECTIVE: The patient is seen examined at bedside. There is not much communication with this lady. She has severe dementia, but the family member is present in the room during my visit. Apparently, she just pulled out the NG tube this morning and does not look like she is in any distress at this moment. OBJECTIVE: VITAL SIGNS: Blood pressure is 145/78, pulse is 106, respiratory rate is 15, O2 saturation is 100, temperature is 98.6. Her O2 saturation is 100% on room air. GENERAL: She does not follow my commands. HEENT: Her pupils are responding to light properly. Sclerae are nonicteric. NECK: Supple. LUNGS: Clear. HEART: S1 and S2 normal. ABDOMEN: Soft. Mildly distended. No guarding. No masses. Bowel sounds present, sluggish. EXTREMITIES: No clubbing, cyanosis, or edema. NEUROLOGICAL: She has dementia, very advanced. She does not follow my commands. She moves all 4 extremities. LABORATORY DATA: None today. IMPRESSION: 1. Sepsis syndrome with tachycardia, fever, lactic acidosis, and pyuria, improved. 2. Urinary tract infection. 3. Hypertension. 4. Partial small-bowel obstruction. 5. Dementia. 6. 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 7. Mild hyperkalemia. Her microbiology showed presumptive Escherichia coli in urine culture, more than 100,000 colonies. Two blood cultures came back negative. I am planning to continue her cefepime home. I am planning to give her clear liquids. If she tolerates that, we are going to advance the diet as tolerated. If she starts throwing up, which will suggest that her partial bowel obstruction is still present. We will have a general surgeon involved to take a look at her. For now, we will continue current regimen. Job ID: [id number]
[2019-05-15] MEDS: Enoxaparin Sodium 40 MG/0.4 ML SYRINGE SC SCH (16:35)
[2019-05-15] MEDS: Donepezil HCl 10 MG TAB PO SCH (20:19)
[2019-05-16] MEDS: Sodium Chloride 0.9% 1,000 ML IV SCH ×3 (02:22→13:20)
[2019-05-16] MEDS: Cefepime 2 GM in Sodium Chloride 0.9% 100 ML IVPB SCH (10:21)
[2019-05-16] MEDS: Clopidogrel Bisulfate 75 MG TAB PO SCH (10:21)
[2019-05-16] MEDS: Aspirin Chewable 81 MG TAB PO SCH (10:21)
[2019-05-16] MEDS: Enoxaparin Sodium 40 MG/0.4 ML SYRINGE SC SCH (10:21)
--- NOTE | 2019-05-16 12:44 | PDOC.HOSPP ---
- Subjective Subjective: 83 y/o admitted due to nausea and vomiting and was found to have UTI/sepsis and later was found to have intestinal obstruction. tolerated full liquid with discontinuation of NG decompression. Had a BM yesterday. No fever. - Objective Vital Signs & Weight: Vital Signs (12 hours) Temp Pulse Resp BP Pulse Ox 05/16/19 07:51 99.7 F H 108 H 24 H 162/73 H 100 05/16/19 04:00 98.2 F 98 18 148/67 H 100 Weight Weight 168 lb 3.2 oz I&O: 05/15/19 05/16/19 05/17/19 06:59 06:59 06:59 Intake Total 700 1200 60 Output Total 400 Balance 300 1200 60 Result Diagrams: 05/14/19 03:48 05/14/19 03:48 ROS - Review of Systems All systems: All other ROS were reviewed and found negative. - Medication Medications: Active Medications Generic Name Dose Route Start Last Admin Trade Name Freq PRN Reason Stop Dose Admin Aspirin 81 mg 05/13/19 09:00 05/16/19 10:21 Aspirin Chewable PO 81 mg DAILY LUIS Administration Clopidogrel Bisulfate 75 mg 05/13/19 09:00 05/16/19 10:21 Plavix PO 75 mg DAILY LUIS Administration Donepezil HCl 10 mg 05/12/19 21:00 05/15/19 20:19 Aricept PO Not Given HS LUIS Enoxaparin Sodium 40 mg 05/13/19 09:00 05/16/19 10:21 Lovenox SC 40 mg 0900 LUIS Administration Hydralazine HCl 10 mg 05/12/19 20:33 05/15/19 19:00 Apresoline SLOW IVP 10 mg Q4H PRN Administration SBP Greater Than 180 Ondansetron HCl 4 mg 05/12/19 16:15 05/14/19 05:56 Zofran IVP 4 mg Q6H PRN Administration Nausea/Vomiting Sodium Chloride 10 ml 05/12/19 21:00 05/16/19 10:22 Flush - Normal Saline IVF Not Given Q12HR LUIS - Exam awake alert (Aphasic) Eye: anicteric sclera ENT: normocephalic atraumatic Neck: supple, no JVD Heart: RRR Respiratory: no wheezes (Fair air entry bilaterally) Gastrointestinal: soft, non-tender, non-distended, normal bowel sounds Extremities: no cyanosis, no clubbing, no edema Neurological: CN's grossly intact (Awake but non conversational. Left hemiparesis noted.) Hosp A/P (1) Left hemiparesis Code(s): G81.94 - HEMIPLEGIA, UNSPECIFIED AFFECTING LEFT NONDOMINANT SIDE Status: Acute (2) Dementia Code(s): F03.90 - UNSPECIFIED DEMENTIA WITHOUT BEHAVIORAL DISTURBANCE Status: Acute Qualifiers: Dementia type: unspecified type Dementia behavioral disturbance: without behavioral disturbance Qualified Code(s): F03.90 - Unspecified dementia without behavioral disturbance (3) HTN (hypertension) Code(s): I10 - ESSENTIAL (PRIMARY) HYPERTENSION Status: Acute Qualifiers: Hypertension type: essential hypertension Qualified Code(s): I10 - Essential (primary) hypertension (4) Nausea & vomiting Code(s): R11.2 - NAUSEA WITH VOMITING, UNSPECIFIED Status: Acute Qualifiers: Vomiting type: unspecified (5) SBO (small bowel obstruction) Code(s): K56.609 - UNSP INTESTNL OBST, UNSP TO PARTIAL VERSUS COMPLETE OBST Status: Acute (6) Sepsis Code(s): A41.9 - SEPSIS, UNSPECIFIED ORGANISM Status: Acute Qualifiers: Sepsis type: Escherichia coli Qualified Code(s): A41.51 - Sepsis due to Escherichia coli [E. coli] (7) UTI (urinary tract infection), bacterial Code(s): N39.0 - URINARY TRACT INFECTION, SITE NOT SPECIFIED; A49.9 - BACTERIAL INFECTION, UNSPECIFIED Status: Acute - Plan DC IV cefepime. Start oral levaquin DC IVF. [place] oral intake advised advance diet Get repeat CBC and BMP. Increase metoprol to 25
[2019-05-16 12:56] LABS: #Eosinphils 0.1 thou/uL (0.0-0.7); #Lymphocytes 1.4 thou/uL (1.20-3.40); #Monocytes 0.7 thou/uL (0.11-0.59); #Neutrophils 5.5 thou/uL (1.40-6.50); %Basophils 0.3 % (0.0-1.0); %Eosinophils 1.4 % (0.0-10.0); %Lymphocytes 17.6 % (21.0-51.0); %Monocytes 9.3 % (0.0-10.0); %Neutrophils 71.3 % (42.0-75.0); Hemoglobin 12.4 g/dL (12.0-16.0); Mean Corpuscular HGB CONC 35.1 g/dL (32.0-36.0); Mean Corpuscular Hemoglobin 31.3 pg (27.0-31.0); Mean Corpuscular Volume 89.2 fL (78.0-98.0); Mean Platelet Volume 7.2 fL (7.4-10.4); Platelet Count 155 thou/uL (130-400); RBC Distribution Width 11.9 % (11.5-14.5); Red Blood Cell (RBC) Count 3.98 mill/uL (4.20-5.40); White Blood Cell (WBC) Count 7.7 thou/uL (4.8-10.8)
[2019-05-16 13:32] LABS: Anion Gap 13 mmol/L (10-20); BUN (Urea Nitrogen) 18 mg/dL (9.8-20.1); Calc. Creatinine Clearance 79 mL/min (70-130); Calcium 9.2 mg/dL (7.8-10.44); Carbon Dioxide 22 mmol/L (23-31); Chloride 108 mmol/L (98-107); Estimated GFR-MDRD Greater than 90; Glucose 100 mg/dL (83-110); Potassium 3.1 mmol/L (3.5-5.1); Sodium 140 mmol/L (136-145)
[2019-05-16] MEDS: Donepezil HCl 10 MG TAB PO SCH (19:10)
[2019-05-17 08:43] LABS: Anion Gap 12 mmol/L (10-20); BUN (Urea Nitrogen) 16 mg/dL (9.8-20.1); Calc. Creatinine Clearance 74 mL/min (70-130); Calcium 9.2 mg/dL (7.8-10.44); Carbon Dioxide 22 mmol/L (23-31); Chloride 106 mmol/L (98-107); Estimated GFR-MDRD Greater than 90; Glucose 104 mg/dL (83-110); Potassium 3.3 mmol/L (3.5-5.1); Sodium 137 mmol/L (136-145)
[2019-05-17] MEDS: Clopidogrel Bisulfate 75 MG TAB PO SCH (09:58)
[2019-05-17] MEDS: Aspirin Chewable 81 MG TAB PO SCH (09:58)
[2019-05-17] MEDS: Enoxaparin Sodium 40 MG/0.4 ML SYRINGE SC SCH (09:59)
[2019-05-17] MEDS ORDERED: Potassium Chloride 10 MEQ in Premix Bag 1 BAG IVPB SCH (11:45)
--- NOTE | 2019-05-17 11:46 | PDOC.HOSPP ---
- Subjective Subjective: 83 y/o admitted due to nausea and vomiting and was found to have UTI/sepsis and later was found to have intestinal obstruction. Tolerating some soft diet. No BM in the last 24 hours. Refused oral potassium. No nausea or vomiting. - Objective Vital Signs & Weight: Vital Signs (12 hours) Temp Pulse Resp BP Pulse Ox 05/17/19 08:19 99.2 F 88 20 140/82 96 Weight Weight 168 lb 3.2 oz I&O: 05/16/19 05/17/19 05/18/19 06:59 06:59 06:59 Intake Total 1200 60 Balance 1200 60 Result Diagrams: 05/16/19 12:39 05/17/19 07:31 ROS - Review of Systems All systems: All other ROS were reviewed and found negative. - Medication Medications: Active Medications Generic Name Dose Route Start Last Admin Trade Name Freq PRN Reason Stop Dose Admin Aspirin 81 mg 05/13/19 09:00 05/17/19 09:58 Aspirin Chewable PO 81 mg DAILY LUIS Administration Clopidogrel Bisulfate 75 mg 05/13/19 09:00 05/17/19 09:58 Plavix PO 75 mg DAILY LUIS Administration Donepezil HCl 10 mg 05/12/19 21:00 05/16/19 19:10 Aricept PO 10 mg HS LUIS Administration Enoxaparin Sodium 40 mg 05/13/19 09:00 05/17/19 09:59 Lovenox SC 40 mg 0900 LUIS Administration Hydralazine HCl 10 mg 05/12/19 20:33 05/15/19 19:00 Apresoline SLOW IVP 10 mg Q4H PRN Administration SBP Greater Than 180 Levofloxacin 750 mg 05/17/19 09:00 05/17/19 09:58 Levaquin PO 750 mg DAILY LUIS Administration Metoprolol Succinate 25 mg 05/17/19 09:00 05/17/19 09:58 Toprol Xl PO 25 mg DAILY LUIS Administration Ondansetron HCl 4 mg 05/12/19 16:15 05/14/19 05:56 Zofran IVP 4 mg Q6H PRN Administration Nausea/Vomiting Sodium Chloride 10 ml 05/12/19 21:00 05/17/19 09:59 Flush - Normal Saline IVF Not Given Q12HR LUIS - Exam awake alert Eye: anicteric sclera ENT: normocephalic atraumatic Neck: supple, no JVD Heart: RRR Respiratory: no wheezes, no ronchi (Fair air entry bilaterally with no obvious crackles or use of accessory muscles) Gastrointestinal: soft, non-tender, non-distended, normal bowel sounds Extremities: no cyanosis, no edema Neurological: CN's grossly intact (Left hemiparesis noted. Awake but non verbal. ) Hosp A/P (1) SBO (small bowel obstruction) Code(s): K56.609 - UNSP INTESTNL OBST, UNSP TO PARTIAL VERSUS COMPLETE OBST Status: Acute (2) UTI (urinary tract infection), bacterial Code(s): N39.0 - URINARY TRACT INFECTION, SITE NOT SPECIFIED; A49.9 - BACTERIAL INFECTION, UNSPECIFIED Status: Acute (3) Sepsis Code(s): A41.9 - SEPSIS, UNSPECIFIED ORGANISM Status: Acute Qualifiers: Sepsis type: Escherichia coli Qualified Code(s): A41.51 - Sepsis due to Escherichia coli [E. coli] (4) Left hemiparesis Code(s): G81.94 - HEMIPLEGIA, UNSPECIFIED AFFECTING LEFT NONDOMINANT SIDE Status: Acute (5) Dementia Code(s): F03.90 - UNSPECIFIED DEMENTIA WITHOUT BEHAVIORAL DISTURBANCE Status: Acute Qualifiers: Dementia type: unspecified type Dementia behavioral disturbance: without behavioral disturbance Qualified Code(s): F03.90 - Unspecified dementia without behavioral disturbance (6) HTN (hypertension) Code(s): I10 - ESSENTIAL (PRIMARY) HYPERTENSION Status: Acute Qualifiers: Hypertension type: essential hypertension Qualified Code(s): I10 - Essential (primary) hypertension (7) Nausea & vomiting Code(s): R11.2 - NAUSEA WITH VOMITING, UNSPECIFIED Status: Acute Qualifiers: Vomiting type: unspecified (8) Hypokalemia Code(s): E87.6 - HYPOKALEMIA Status: Acute - Plan Replete serum potassium with 60 meq of IV KCL. patient refused oral prep. We will also get serum magnesium and replete if needed. Continue oral levaquin. and other medications, PT/OT eval and treat. Get CBC and BMP in the am. Soft diet as tolerated to continue.
[2019-05-17] MEDS: Donepezil HCl 10 MG TAB PO SCH (19:14)
[2019-05-18 05:22] LABS: #Eosinphils 0.2 thou/uL (0.0-0.7); #Lymphocytes 1.3 thou/uL (1.20-3.40); #Monocytes 0.7 thou/uL (0.11-0.59); #Neutrophils 4.7 thou/uL (1.40-6.50); %Basophils 0.6 % (0.0-1.0); %Eosinophils 2.6 % (0.0-10.0); %Monocytes 10.4 % (0.0-10.0); %Neutrophils 67.4 % (42.0-75.0); Hemoglobin 12.3 g/dL (12.0-16.0); Mean Corpuscular HGB CONC 34.5 g/dL (32.0-36.0); Mean Corpuscular Hemoglobin 30.4 pg (27.0-31.0); Mean Corpuscular Volume 88.3 fL (78.0-98.0); Mean Platelet Volume 7.6 fL (7.4-10.4); Platelet Count 180 thou/uL (130-400); RBC Distribution Width 11.9 % (11.5-14.5); Red Blood Cell (RBC) Count 4.04 mill/uL (4.20-5.40)
[2019-05-18 05:50] LABS: Anion Gap 12 mmol/L (10-20); BUN (Urea Nitrogen) 14 mg/dL (9.8-20.1); Calc. Creatinine Clearance 71 mL/min (70-130); Calcium 9.1 mg/dL (7.8-10.44); Carbon Dioxide 24 mmol/L (23-31); Chloride 105 mmol/L (98-107); Estimated GFR-MDRD Greater than 90; Glucose 106 mg/dL (83-110); Potassium 3.5 mmol/L (3.5-5.1); Sodium 137 mmol/L (136-145)
--- NOTE | 2019-05-18 08:55 | EKG ---
Test Reason : Blood Pressure : / mmHG Vent. Rate : 105 BPM Atrial Rate : 105 BPM P-R Int : 164 ms QRS Dur : 076 ms QT Int : 360 ms P-R-T Axes : 056 033 039 degrees QTc Int : 475 ms Sinus tachycardia Cannot rule out Anterior infarct (cited on or before 12-MAY-2019) Abnormal ECG When compared with ECG of 12-MAY-2019 13:52, (Unconfirmed) ST elevation now present in Inferior leads Nonspecific T wave abnormality no longer evident in Anterior leads Confirmed by DR. Lena PHAM ([id number]) on 05/18/2019 8:54:44 AM Referred By: EBONIE Confirmed By:DR. Lena PHAM
[2019-05-18] MEDS: Clopidogrel Bisulfate 75 MG TAB PO SCH (09:48)
[2019-05-18] MEDS: Aspirin Chewable 81 MG TAB PO SCH (09:48)
[2019-05-18] MEDS: Enoxaparin Sodium 40 MG/0.4 ML SYRINGE SC SCH (09:49)
[2019-05-18 13:54] VITALS: TEMP 98.3
[2019-05-18] MEDS: hydrALAZINE 20 MG/ML VIAL SLOW IVP PRN (14:36)
[2019-05-18 16:08] VITALS: BP 196/93
== END 2019-05-18 17:08 | disposition home or self-care (01) | DRG 872 ==
LOC: ERS 13:00 → 2NO 16:15 → T4-A 05-14 14:53
PROVIDERS: ADMIT Internal Medicine; ATTEND Internal Medicine
DX: A41.51 Sepsis due to Escherichia coli [E. coli] (principal); N39.0 Urinary tract infection, site not specified; K56.600 Partial intestinal obstruction, unspecified as to cause; I69.354 Hemiplegia and hemiparesis following cerebral infarction affecting left non-dominant side; E87.5 Hyperkalemia; I10 Essential (primary) hypertension; K21.9 Gastro-esophageal reflux disease without esophagitis; G40.909 Epilepsy, unspecified, not intractable, without status epilepticus; I73.9 Peripheral vascular disease, unspecified; F41.9 Anxiety disorder, unspecified; E87.6 Hypokalemia; I69.320 Aphasia following cerebral infarction; F03.90 Unspecified dementia, unspecified severity, without behavioral disturbance, psychotic disturbance, mood disturbance, and anxiety; F32.9 Major depressive disorder, single episode, unspecified; Z90.710 Acquired absence of both cervix and uterus; Z79.01 Long term (current) use of anticoagulants; Z79.82 Long term (current) use of aspirin
CPT/HCPCS: 36415; 51701; 71045; 74018; 74019; 74177; 80048; 80053; 81003; 81015; 82150; 82550; 83605; 83690; 83735; 84484; 85025; 87040; 87077; 87086; 87186; 93005; 93010; 96365; 96367; 96375; A4353; J0360; J0692; J1650; J1956; J2405; J3370; J3480; J3490; J7050; Q9966

== ENCOUNTER 2019-10-13 12:57 | Emergency (ER) | payer MEDICARE, MEDICAID ==
[2019-10-13 13:38] LABS: Bilirubin Negative (Negative); Blood, Urine Negative (Negative); Clarity Clear (Clear); Glucose, Urine (Dipstick) 50 mg/dL (Negative); Leukocyte Negative Leu/uL (Negative); Nitrite 2+ (Negative); Protein, Urine (Dipstick) Negative (Neg-Trace); RBC/HPF 0-3 HPF (0-3); Squamous Epithelial 0-3 HPF (0-3); Urobilinogen Normal mg/dL (Less than 2); WBC/HPF 0-3 HPF (0-3)
[2019-10-13 13:54] LABS: Bacteria/HPF 1+ HPF (None Seen)
[2019-10-13 14:22] LABS: #Basophils 0.1 thou/uL (0.0-0.2); #Eosinphils 0.1 thou/uL (0.0-0.7); #Lymphocytes 1.5 thou/uL (1.20-3.40); #Monocytes 0.4 thou/uL (0.11-0.59); #Neutrophils 5.2 thou/uL (1.40-6.50); %Basophils 0.8 % (0.0-1.0); %Eosinophils 1.2 % (0.0-10.0); %Lymphocytes 20.6 % (21.0-51.0); %Monocytes 5.8 % (0.0-10.0); %Neutrophils 71.8 % (42.0-75.0); Hemoglobin 13.3 g/dL (12.0-16.0); Mean Corpuscular HGB CONC 34.4 g/dL (32.0-36.0); Mean Corpuscular Hemoglobin 31.4 pg (27.0-31.0); Mean Corpuscular Volume 91.2 fL (78.0-98.0); Mean Platelet Volume 7.2 fL (7.4-10.4); Platelet Count 210 thou/uL (130-400); RBC Distribution Width 12.2 % (11.5-14.5); Red Blood Cell (RBC) Count 4.22 mill/uL (4.20-5.40); White Blood Cell (WBC) Count 7.2 thou/uL (4.8-10.8)
[2019-10-13 14:43] LABS: ALT (SGPT) 16 U/L (8-55); AST (SGOT) 16 U/L (5-34); Alkaline Phosphatase 81 U/L (40-110); Anion Gap 13 mmol/L (10-20); BUN (Urea Nitrogen) 24 mg/dL (9.8-20.1); Bilirubin, Total 0.5 mg/dL (0.2-1.2); CK (CPK) 95 U/L (29-168); Calc. Creatinine Clearance 0 mL/min (70-130); Calcium 9.6 mg/dL (7.8-10.44); Carbon Dioxide 27 mmol/L (23-31); Chloride 105 mmol/L (98-107); Estimated GFR-MDRD 81; Globulin 2.9 g/dL (2.4-3.5); Glucose 96 mg/dL (83-110); Potassium 4.5 mmol/L (3.5-5.1); Protein, Total 6.9 g/dL (6.0-8.3); Sodium 140 mmol/L (136-145)
== END 2019-10-13 16:47 ==
LOC: ERS 12:57
DX: Z71.1 Person with feared health complaint in whom no diagnosis is made (principal); K21.9 Gastro-esophageal reflux disease without esophagitis; I10 Essential (primary) hypertension; I73.9 Peripheral vascular disease, unspecified; F03.90 Unspecified dementia, unspecified severity, without behavioral disturbance, psychotic disturbance, mood disturbance, and anxiety; E55.9 Vitamin D deficiency, unspecified; Z87.891 Personal history of nicotine dependence; Z79.899 Other long term (current) drug therapy; Z79.82 Long term (current) use of aspirin
CPT/HCPCS: 36415; 51701; 80053; 81003; 81015; 82550; 83880; 84484; 85025; 93005; A4353

== ENCOUNTER 2019-11-24 14:17 | Emergency (ER) | payer MEDICARE, MEDICAID ==
--- NOTE | 2019-11-24 15:50 | RAD ---
EXAM: CHEST ONE VIEW HISTORY: Altered mental status. COMPARISON: 05/12/2019 FINDINGS: The cardiac silhouette and pulmonary vasculature is within normal limits. Left lung apex is partially obscured due to patient's overlying mandible. Lungs otherwise appear clear. Osteopenia is present. Vascular calcification are seen in the thoracic aorta. Chest is stable compared to prior exam. IMPRESSION: No acute cardiopulmonary process.
--- NOTE | 2019-11-24 16:03 | CT ---
Exam: Head CT without contrast HISTORY: Altered mental status. COMPARISON: 10/31/2018 FINDINGS: Hemorrhage: No intraparenchymal hemorrhage or extra-axial hematoma. Brain parenchyma: Remote encephalomalacia and gliosis involving the right cerebrum. Chronic small ves leonidas ischemic changes white matter are identified.Remote lacunar infarct in the left and right basal ganglia. Additional remote lacunar infarct in the brainstem. Ventricular system: Able dilatation of ventricular system. Calvarium: Stable hyperostosis frontalis interna Sinuses and mastoid air cells: Adequate aeration. IMPRESSION: No acute intracranial process. Transcribed Date/Time: 11/24/2019 4:54 PM
[2019-11-24 16:06] LABS: Bacteria/HPF None Seen HPF (None Seen); Bilirubin Negative (Negative); Blood, Urine Negative (Negative); Clarity Clear (Clear); Glucose, Urine (Dipstick) Normal (Negative); Leukocyte 75 Leu/uL (Negative); Nitrite Negative (Negative); Protein, Urine (Dipstick) 10 mg/dL (Neg-Trace); RBC/HPF 0-3 HPF (0-3); Squamous Epithelial None Seen HPF (0-3); Urobilinogen 3 mg/dL (Less than 2)
[2019-11-24 16:20] LABS: ALT (SGPT) 16 U/L (8-55); AST (SGOT) 23 U/L (5-34); Albumin 4.2 g/dL (3.4-4.8); Alkaline Phosphatase 91 U/L (40-110); Anion Gap 20 mmol/L (10-20); BUN (Urea Nitrogen) 20 mg/dL (9.8-20.1); Bilirubin, Total 0.5 mg/dL (0.2-1.2); Calc. Creatinine Clearance 0 mL/min (70-130); Calcium 9.7 mg/dL (7.8-10.44); Carbon Dioxide 20 mmol/L (23-31); Chloride 105 mmol/L (98-107); Estimated GFR-MDRD 69; Globulin 3.5 g/dL (2.4-3.5); Glucose 103 mg/dL (83-110); Lipase 18 U/L (8-78); Potassium 5.1 mmol/L (3.5-5.1); Protein, Total 7.7 g/dL (6.0-8.3); Sodium 140 mmol/L (136-145)
[2019-11-24 16:22] LABS: #Basophils 0.1 thou/uL (0.0-0.2); #Eosinphils 0.1 thou/uL (0.0-0.7); #Lymphocytes 1.6 thou/uL (1.20-3.40); #Monocytes 0.6 thou/uL (0.11-0.59); %Basophils 0.7 % (0.0-1.0); %Eosinophils 0.8 % (0.0-10.0); %Lymphocytes 21.5 % (21.0-51.0); %Monocytes 8.5 % (0.0-10.0); %Neutrophils 68.6 % (42.0-75.0); Hemoglobin 14.6 g/dL (12.0-16.0); Mean Corpuscular HGB CONC 32.7 g/dL (32.0-36.0); Mean Corpuscular Hemoglobin 29.8 pg (27.0-31.0); Mean Corpuscular Volume 90.9 fL (78.0-98.0); Mean Platelet Volume 7.4 fL (7.4-10.4); Platelet Count 210 thou/uL (130-400); RBC Distribution Width 11.8 % (11.5-14.5); White Blood Cell (WBC) Count 7.4 thou/uL (4.8-10.8)
== END 2019-11-24 17:03 ==
LOC: ERS 14:17
DX: R55 Syncope and collapse (principal); N39.0 Urinary tract infection, site not specified; I10 Essential (primary) hypertension; F03.90 Unspecified dementia, unspecified severity, without behavioral disturbance, psychotic disturbance, mood disturbance, and anxiety; K21.9 Gastro-esophageal reflux disease without esophagitis; E78.5 Hyperlipidemia, unspecified; G40.909 Epilepsy, unspecified, not intractable, without status epilepticus; F41.9 Anxiety disorder, unspecified; F32.9 Major depressive disorder, single episode, unspecified; G47.00 Insomnia, unspecified; Z87.891 Personal history of nicotine dependence; Z86.73 Personal history of transient ischemic attack (TIA), and cerebral infarction without residual deficits; Z79.899 Other long term (current) drug therapy; Z79.82 Long term (current) use of aspirin
CPT/HCPCS: 36415; 51701; 70450; 71045; 80053; 81003; 81015; 83690; 84484; 85025; 87086; 93005; 94760

== ENCOUNTER 2020-07-16 10:23 | Inpatient (IN) | payer MEDICARE, MEDICAID, OTHER ==
[2020-07-16 11:33] LABS: Bacteria/HPF None Seen HPF (None Seen); Bilirubin Negative (Negative); Blood, Urine Trace (Negative); Clarity Clear (Clear); Glucose, Urine (Dipstick) 30 mg/dL (Negative); Ketone, Urine Negative (Negative); Leukocyte Negative Leu/uL (Negative); Nitrite Negative (Negative); Protein, Urine (Dipstick) 30 mg/dL (Neg-Trace); Specific Gravity, Urine 1.037 (1.002-1.036); Squamous Epithelial 0-3 HPF (0-3); Urobilinogen 6 mg/dL (Less than 2); WBC/HPF 0-3 HPF (0-3); pH, Urine 5.5 (5.0-9.0)
[2020-07-16 11:34] LABS: Band 28 % (5-11); Hemoglobin 15.1 g/dL (12.0-16.0); Lymphocytes 24 % (21-51); MDiff Complete? YES; Mean Corpuscular HGB CONC 32.2 g/dL (32.0-36.0); Mean Corpuscular Hemoglobin 30.6 pg (27.0-31.0); Mean Corpuscular Volume 95.3 fL (78.0-98.0); Metamyelocyte 2 % (0-0); Monocytes 3 % (0-10); Neutrophil 43 % (42-75); Platelet Count 170 thou/uL (130-400); RBC Distribution Width 12.4 % (11.5-14.5); Red Blood Cell (RBC) Count 4.92 mill/uL (4.20-5.40); Vacuoles SLIGHT; White Blood Cell (WBC) Count 8.2 thou/uL (4.8-10.8)
--- NOTE | 2020-07-16 11:39 | RAD ---
Chest AP view INDICATION: Dyspnea COMPARISON: November 24, 2019 FINDINGS: Lungs: There are patchy airspace opacities within the right upper lobe and right lower lobe suspicio us for pneumonia. The left lung is clear. Cardiac silhouette: The cardiomediastinal silhouette appears within normal limits. Pulmonary vasculature: Normal Pleural spaces: No pleural effusion or pneumothorax is demonstrated. Upper abdomen: No abnormality seen. Osseous structures: There is scattered degenerative and osteoarthritic change present. Additional findings: None. IMPRESSION: Patchy airspace opacity right upper lobe and right lower lobe are suspicious for pneumonia. Recommend correlation with the clinical examination and radiographic follow-up to resolution.
[2020-07-16] MEDS ORDERED: Cefepime 2 GM VIAL ONE (11:46)
[2020-07-16 11:47] LABS: ALT (SGPT) 89 U/L (8-55); AST (SGOT) 59 U/L (5-34); Albumin 3.7 g/dL (3.4-4.8); Alkaline Phosphatase 87 U/L (40-110); Anion Gap 19 mmol/L (10-20); BUN (Urea Nitrogen) 56 mg/dL (9.8-20.1); Bilirubin, Total 1.1 mg/dL (0.2-1.2); Calc. Creatinine Clearance 0 mL/min (70-130); Calcium 9.9 mg/dL (7.8-10.44); Carbon Dioxide 24 mmol/L (23-31); Chloride 120 mmol/L (98-107); Estimated GFR-MDRD 54; Globulin 4.5 g/dL (2.4-3.5); Glucose 263 mg/dL (83-110); Potassium 4.3 mmol/L (3.5-5.1); Protein, Total 8.2 g/dL (6.0-8.3); Sodium 159 mmol/L (136-145)
[2020-07-16] MEDS ORDERED: Vancomycin HCl 1.25 GM in Sodium Chloride 0.9% 250 ML 250 ML IVPB SCH (12:00)
[2020-07-16] MEDS ORDERED: Acetaminophen 650 MG Suppository ONE ×2 (12:03→17:54)
[2020-07-16 14:55] LABS: Lactic Acid 6.3 mmol/L (0.5-2.2)
[2020-07-16] MEDS ORDERED: Dextrose 5% in Water 1,000 ML IV SCH (19:33)
[2020-07-16] MEDS ORDERED: Labetalol HCl 100 MG/20 ML VIAL SLOW IVP PRN (19:33)
[2020-07-16] MEDS ORDERED: Ondansetron PF 4 MG/2 ML Vial IVP PRN (19:33)
[2020-07-16] MEDS ORDERED: hydrALAZINE 20 MG/ML VIAL SLOW IVP PRN (19:33)
--- NOTE | 2020-07-16 19:33 | HP ---
PRIMARY CARE PHYSICIAN: The patient's primary care physician is out of town. CHIEF COMPLAINT: Shortness of breath and aspirated at the nursing facility. HISTORY OF PRESENT ILLNESS: The history of present illness is very limited as the patient is essentially aphasic. Her daughter is at the bedside and is giving the history secondhand from the nursing staff at the [facility], but Ms. Ku is an 84-year-old female, who has advanced dementia. She has also had a cerebrovascular accident, which has left her with left-sided paralysis. She resides at [facility] and they called the patient's daughter after they noted that she had an episode of "aspirating. The daughter says that prior to that about a couple of days ago she basically just stopped eating and taking in anything p.o. The nursing facility had been trying to give her food and then they made a decision to give it a try with some dietary shakes. She was not eating much of that as well and her daughter says that she has lost at least 10 pounds and when they were trying to give her the shakes, she aspirated and appeared to be come dyspneic after that and was transferred to our facility for evaluation. When she was evaluated in the ER, chest x-ray was suspicious for aspiration pneumonia with infiltrates on the right base. She was also found to be hypoxemic requiring 6 L of oxygen and she is being admitted for further evaluation. Her daughter admits that the staff at the nursing facility had talked about either placing a PEG tube or even considering hospice. It is noted that she was in the hospital back in May of 2019 with dehydration and urinary tract infection at that time. REVIEW OF SYSTEMS: Unobtainable as the patient is aphasic. PAST MEDICAL HISTORY: Taken from previous history and physical from 05/12/2019, and includes cerebrovascular accident with left hemiplegia, hypertension, gastroesophageal reflux disease, seizure disorder, peripheral artery disease, anxiety, and depression. PAST SURGICAL HISTORY: She has had a hysterectomy, , cholecystectomy, and bowel surgery. ALLERGIES: NO KNOWN DRUG ALLERGIES. SOCIAL HISTORY: She is a former smoker. No alcohol use. She resides at [facility]. Her daughter, Tory Ramos is acting as surrogate decision maker. She is the second oldest child and she says the others are brothers and they have designated her to be the decision maker. She wants her mom to be full code. FAMILY HISTORY: Unknown. MEDICATIONS: Taken from the ER records, but need to be reconciled and includes; 1. Acyclovir 400 mg daily. 2. Aspirin 81 mg daily. 3. Carvedilol 6.25 mg twice a day. 4. Famotidine 20 mg daily. 5. Docusate sodium 100 mg 2 tablets once a day. 6. Keppra 250 mg twice a day. 7. Tylenol p.r.n. 8. Risamine as directed. 9. Potassium chloride 20 mEq twice a day. 10. Plavix 75 mg daily. PHYSICAL EXAMINATION: GENERAL: She is alert, but I cannot assess orientation. She is thin and frail in appearance. VITAL SIGNS: Blood pressure was 113/73, heart rate 103, respiratory rate of 26, temperature is 99.6, and O2 saturation was 90% on 6 L. HEENT: Pupils are equal and reactive. NECK: There is no jugular venous distention. LUNGS: She has rhonchi, wheezing, and rales throughout, but primarily in the right lung upper lung lan. CARDIOVASCULAR: Her heart rate is regular. Rate is normal. I was not able to appreciate any murmurs, clicks, or rubs. ABDOMEN: Soft. It is nontender and nondistended. Positive for bowel sounds. No rebound. No guarding. No organomegaly. EXTREMITIES: There is no edema. No calf tenderness. No joint effusions. NEUROLOGIC: The exam is significant for left-sided weakness. SKIN AND INTEGUMENT: No significant skin changes. No rash. LABORATORY RESULTS: White blood cell count 8.2, hemoglobin 15.1, hematocrit is 46.9, and platelet count is 120. Sodium 159, potassium 4.3, chloride is 120, CO2 is 24, BUN of 56, creatinine 1.16, and glucose is 263. Urinalysis is significant for some red cells and chest x-ray shows some patchy infiltrate in the right base, but heart size was normal. There are no effusions. This is by my reading. ASSESSMENT AND PLAN: 1. This is a pleasant 84-year-old female, who has a history of cerebrovascular accident with left-sided hemiplegia as well as advanced dementia. She has essentially stopped eating in the [facility] setting and is being admitted with severe dehydration, hypernatremia, and aspiration pneumonia. I spoke with the daughter with regard to goals of care. She wants her mother to remain a full code for right now, but she realizes the downward trajectory that her mother has been facing with regard to her medical condition and is not sure whether or not she wanted a PEG tube or hospice and palliative care. She is agreeable to talk to the palliative care team with regard to goals of care to help define her wishes further. In the meantime, she will be admitted and started on broad-spectrum IV antibiotics, fluid resuscitation to help correct the hypernatremia and dehydration as well as acute kidney injury. 2. For hypertension, her blood pressure has been elevated here in the emergency room. We will have p.r.n. medications available to help with her blood pressure and also place a Catapres patch. She will also be placed on deep venous thrombosis as well as gastrointestinal prophylaxis and further treatment will be based on the patient's clinical course. Job ID: [id number]
[2020-07-16] MEDS: Acetaminophen 650 MG Suppository PR PRN (19:59)
[2020-07-16] MEDS ORDERED: cloNIDine 0.1mg/24 Hour PATCH TD SCH (20:00)
[2020-07-16 20:16] VITALS: BMI 24.5
[2020-07-16] MEDS: Piperacillin/Tazobactam 3.375 GM in Sodium Chloride 0.9% 100 ML IVPB SCH (20:44)
[2020-07-16 20:57] LABS: Anion Gap 22 mmol/L (10-20); BUN (Urea Nitrogen) 52 mg/dL (9.8-20.1); Calc. Creatinine Clearance 39 mL/min (70-130); Calcium 9.6 mg/dL (7.8-10.44); Carbon Dioxide 20 mmol/L (23-31); Chloride 122 mmol/L (98-107); Estimated GFR-MDRD 62; Glucose 189 mg/dL (83-110); Potassium 4.2 mmol/L (3.5-5.1); Sodium 160 mmol/L (136-145)
[2020-07-16] MEDS ORDERED: Vancomycin 1 GM in Premix Bag 1 BAG IVPB SCH (21:00)
[2020-07-16] MEDS: Famotidine/PF 20 mg/2ml Vial SLOW IVP SCH (21:39)
[2020-07-16] MEDS: Dextrose 5% in Water 1,000 ML IV SCH (23:04)
[2020-07-17] MEDS: Piperacillin/Tazobactam 3.375 GM in Sodium Chloride 0.9% 100 ML IVPB SCH ×4 (01:45→20:20)
[2020-07-17] MEDS: Dextrose 5% in Water 1,000 ML IV SCH ×4 (06:33→23:34)
[2020-07-17 07:42] LABS: Anion Gap 19 mmol/L (10-20); BUN (Urea Nitrogen) 48 mg/dL (9.8-20.1); Calc. Creatinine Clearance 44 mL/min (70-130); Calcium 9.6 mg/dL (7.8-10.44); Carbon Dioxide 21 mmol/L (23-31); Chloride 120 mmol/L (98-107); Estimated GFR-MDRD 72; Glucose 186 mg/dL (83-110); Potassium 3.3 mmol/L (3.5-5.1); Sodium 157 mmol/L (136-145)
[2020-07-17 07:44] LABS: Lactic Acid 6.7 mmol/L (0.5-2.2)
[2020-07-17 07:58] LABS: Band 56 % (5-11); Hemoglobin 13.2 g/dL (12.0-16.0); Lymphocytes 23 % (21-51); MDiff Complete? YES; Mean Corpuscular HGB CONC 31.6 g/dL (32.0-36.0); Mean Corpuscular Hemoglobin 30.8 pg (27.0-31.0); Mean Corpuscular Volume 97.5 fL (78.0-98.0); Mean Platelet Volume 9.9 fL (7.4-10.4); Metamyelocyte 8 % (0-0); Monocytes 2 % (0-10); Myelocyte 1 % (0-0); Neutrophil 10 % (42-75); Platelet Count 111 thou/uL (130-400); Platelet Morphology Comment Appears Decreased; RBC Distribution Width 12.1 % (11.5-14.5); White Blood Cell (WBC) Count 10.3 thou/uL (4.8-10.8)
[2020-07-17] MEDS: Enoxaparin Sodium 30 MG/0.3 ML SYRINGE SC SCH (09:39)
--- NOTE | 2020-07-17 09:44 | PDOC.HOSPP ---
- Subjective Encounter Date: 07/17/20 Encounter Time: 09:42 Subjective: Ms. Ku was seen today in follow-up of aspiration pneumonia and hypernatremia. She is awake and alert, but non-verbal. She will track you in the room, and squeeze your hand, with her right hand. - Objective Vital Signs & Weight: Vital Signs (12 hours) Temp Pulse Resp BP Pulse Ox 07/17/20 08:00 98.8 F 07/17/20 06:00 98.6 F 87 25 H 130/61 97 07/17/20 04:00 98.4 F 91 24 H 121/59 L 100 07/17/20 02:00 98.8 F 87 24 H 117/58 L 98 07/17/20 00:19 98 07/17/20 00:00 99.7 F H 79 25 H 101/60 07/16/20 22:00 100.3 F H 90 32 H 112/64 100 Weight Weight 138 lb 8 oz Most Recent Monitor Data Heart Rate from ECG 88 NIBP 142/70 NIBP BP-Mean 94 Respiration from ECG 27 SpO2 97 I&O: 07/16/20 07/17/20 07/18/20 06:59 06:59 06:59 Intake Total 1292 Output Total 400 Balance 892 Result Diagrams: 07/17/20 07:17 07/17/20 07:17 Hospitalist ROS - Medication Medications: Active Medications Generic Name Dose Route Start Last Admin Trade Name Freq PRN Reason Stop Dose Admin Acetaminophen 650 mg 07/16/20 16:58 07/16/20 19:59 Acetaminophen 650 Mg Suppository PA 650 mg Q4H PRN Administration Headache/Fever or Pain Enoxaparin Sodium 30 mg 07/17/20 09:00 07/17/20 09:39 Enoxaparin Sodium 30 Mg/0.3 Ml Syringe SC 30 mg 0900 LUIS Administration Famotidine 20 mg 07/16/20 21:00 07/16/20 21:39 Famotidine/Pf 20 Mg/2ml Vial SLOW IVP 20 mg 2100 LUIS Administration Piperacillin Sod/Tazobactam 100 mls @ 200 mls/hr 07/16/20 20:00 07/17/20 09:39 Sod 3.375 gm/ Sodium Chloride IVPB 100 mls 0200,0800,1400,2000 LUIS Administration - Exam Eye: PERRL, anicteric sclera Heart: RRR, no murmur, no gallops, no rubs, normal peripheral pulses Respiratory: CTAB, rales (+ rhonchi and rales at both bases), rhonchi Hosp A/P (1) Acute respiratory failure with hypoxia Code(s): J96.01 - ACUTE RESPIRATORY FAILURE WITH HYPOXIA Status: Acute (2) Pneumonia Code(s): J18.9 - PNEUMONIA, UNSPECIFIED ORGANISM Status: Acute (3) Hypernatremia Code(s): E87.0 - HYPEROSMOLALITY AND HYPERNATREMIA Status: Acute (4) Dementia Code(s): F03.90 - UNSPECIFIED DEMENTIA WITHOUT BEHAVIORAL DISTURBANCE Status: Chronic Qualifiers: Dementia type: unspecified type Dementia behavioral disturbance: without behavioral disturbance Qualified Code(s): F03.90 - Unspecified dementia without behavioral disturbance (5) HTN (hypertension) Code(s): I10 - ESSENTIAL (PRIMARY) HYPERTENSION Status: Chronic Qualifiers: Hypertension type: essential hypertension Qualified Code(s): I10 - Essential (primary) hypertension (6) CVA, old, 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 We discussed code status again as well as the patient's prognosis>
[2020-07-17 12:22] LABS: SARS-CoV-2 MS2 Positive; SARS-CoV-2 N Gene Negative; SARS-CoV-2 S Gene Negative; SARS-CoV-2 by NAA Not Detected (NotDetected); SARS-CoV-2 orf1ab Negative
[2020-07-17] MEDS ORDERED: Vancomycin HCl 750 MG in Sodium Chloride 0.9% 250 ML 250 ML IVPB SCH (13:00)
[2020-07-17 15:04] LABS: Anion Gap 23 mmol/L (10-20); BUN (Urea Nitrogen) 45 mg/dL (9.8-20.1); Calc. Creatinine Clearance 51 mL/min (70-130); Calcium 9.1 mg/dL (7.8-10.44); Carbon Dioxide 18 mmol/L (23-31); Chloride 120 mmol/L (98-107); Estimated GFR-MDRD 83; Glucose 126 mg/dL (83-110); Potassium 5.2 mmol/L (3.5-5.1); Sodium 156 mmol/L (136-145)
[2020-07-17] MEDS: Famotidine/PF 20 mg/2ml Vial SLOW IVP SCH (20:21)
[2020-07-18] MEDS: Piperacillin/Tazobactam 3.375 GM in Sodium Chloride 0.9% 100 ML IVPB SCH ×4 (01:28→20:46)
[2020-07-18] MEDS: Dextrose 5% in Water 1,000 ML IV SCH ×3 (05:34→19:22)
[2020-07-18] MEDS: Enoxaparin Sodium 30 MG/0.3 ML SYRINGE SC SCH (08:20)
[2020-07-18 08:28] LABS: Anion Gap 16 mmol/L (10-20); BUN (Urea Nitrogen) 26 mg/dL (9.8-20.1); Calc. Creatinine Clearance 55 mL/min (70-130); Calcium 8.5 mg/dL (7.8-10.44); Carbon Dioxide 20 mmol/L (23-31); Chloride 110 mmol/L (98-107); Estimated GFR-MDRD Greater than 90; Glucose 152 mg/dL (83-110); Sodium 143 mmol/L (136-145)
[2020-07-18 08:37] LABS: Lactic Acid 4.9 mmol/L (0.5-2.2)
[2020-07-18 15:42] LABS: Vancomycin, Trough 6.1 ug/mL
[2020-07-18] MEDS ORDERED: Vancomycin HCl 750 MG in Sodium Chloride 0.9% 250 ML 250 ML IVPB SCH (16:00)
[2020-07-18] MEDS: Vancomycin 1 GM in Premix Bag 1 BAG IVPB SCH (16:13)
--- NOTE | 2020-07-18 17:14 | PDOC.HOSPP ---
- Subjective Encounter Date: 07/18/20 Encounter Time: 17:13 Subjective: Ms. Ku was seen today in follow-up of pneumonia, probable aspiration. She is awake, but does not respond. She has a wet sounding cough. - Objective Vital Signs & Weight: Vital Signs (12 hours) Temp Pulse Resp BP Pulse Ox 07/18/20 12:24 98.7 F 79 99 H 107/44 L 20 L 07/18/20 08:17 97.4 F L 79 20 113/55 L 100 07/18/20 08:00 100 Weight Admit Weight 138 lb 8 oz Weight 138 lb 8 oz Most Recent Monitor Data Heart Rate from ECG 88 NIBP 117/62 NIBP BP-Mean 80 Respiration from ECG 26 SpO2 96 I&O: 07/17/20 07/18/20 07/19/20 06:59 06:59 06:59 Intake Total 1292 1725 Output Total 400 250 Balance 892 1475 Result Diagrams: 07/17/20 07:17 07/18/20 07:56 Hospitalist ROS - Medication Medications: Active Medications Generic Name Dose Route Start Last Admin Trade Name Freq PRN Reason Stop Dose Admin Acetaminophen 650 mg 07/16/20 16:58 07/16/20 19:59 Acetaminophen 650 Mg Suppository GA 650 mg Q4H PRN Administration Headache/Fever or Pain Enoxaparin Sodium 30 mg 07/17/20 09:00 07/18/20 08:20 Enoxaparin Sodium 30 Mg/0.3 Ml Syringe SC 30 mg 0900 LUIS Administration Famotidine 20 mg 07/16/20 21:00 07/17/20 20:21 Famotidine/Pf 20 Mg/2ml Vial SLOW IVP 20 mg 2100 LUIS Administration Piperacillin Sod/Tazobactam 100 mls @ 200 mls/hr 07/16/20 20:00 07/18/20 14:48 Sod 3.375 gm/ Sodium Chloride IVPB 100 mls 0200,0800,1400,2000 LUIS Administration Dextrose/Water 1,000 mls @ 150 mls/hr 07/17/20 08:08 07/18/20 14:48 D5w IV 1,000 mls .[id number] LUIS Administration Vancomycin HCl 1 gm/ Device 200 mls @ 200 mls/hr 07/18/20 16:00 07/18/20 16:13 IVPB 200 mls 1600 LUIS Administration - Exam Eye: PERRL, anicteric sclera Heart: RRR, no murmur, no gallops, no rubs, normal peripheral pulses Respiratory: rales (+ bilateral rhonchi and rales), rhonchi Gastrointestinal: soft, non-tender, non-distended, normal bowel sounds, no palpable masses Extremities: 1+ LE edema (trace pedal edema, feet a warm today, pulses are thready but palpable) Hosp A/P (1) Acute respiratory failure with hypoxia Code(s): J96.01 - ACUTE RESPIRATORY FAILURE WITH HYPOXIA Status: Acute (2) Pneumonia Code(s): J18.9 - PNEUMONIA, UNSPECIFIED ORGANISM Status: Acute (3) Hypernatremia Code(s): E87.0 - HYPEROSMOLALITY AND HYPERNATREMIA Status: Acute (4) Dementia Code(s): F03.90 - UNSPECIFIED DEMENTIA WITHOUT BEHAVIORAL DISTURBANCE Status: Chronic Qualifiers: Dementia type: unspecified type Dementia behavioral disturbance: without behavioral disturbance Qualified Code(s): F03.90 - Unspecified dementia without behavioral disturbance (5) HTN (hypertension) Code(s): I10 - ESSENTIAL (PRIMARY) HYPERTENSION Status: Chronic Qualifiers: Hypertension type: essential hypertension Qualified Code(s): I10 - Essenti al (primary) hypertension (6) CVA, old, 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
--- NOTE | 2020-07-18 17:20 | PDOC.FMACP ---
Advance Care Planning - Problem (1) Acute respiratory failure with hypoxia Status: Acute Code(s): J96.01 - ACUTE RESPIRATORY FAILURE WITH HYPOXIA (2) Pneumonia Status: Acute Code(s): J18.9 - PNEUMONIA, UNSPECIFIED ORGANISM (3) Hypernatremia Status: Acute Code(s): E87.0 - HYPEROSMOLALITY AND HYPERNATREMIA (4) Dementia Status: Chronic Code(s): F03.90 - UNSPECIFIED DEMENTIA WITHOUT BEHAVIORAL DISTURBANCE Qualifiers: Dementia type: unspecified type Dementia behavioral disturbance: without behavioral disturbance Qualified Code(s): F03.90 - Unspecified dementia without behavioral disturbance (5) HTN (hypertension) Status: Chronic Code(s): I10 - ESSENTIAL (PRIMARY) HYPERTENSION Qualifiers: Hypertension type: essential hypertension Qualified Code(s): I10 - Essential (primary) hypertension (6) CVA, old, aphasia Status: Chronic Code(s): I69.320 - APHASIA FOLLOWING CEREBRAL INFARCTION - Note Summary: Advanced Care Planning was discussed. The diagnosis, prognosis and goals of care were discussed. The patient's daughter has not yet been able to discuss the patient with her brothers. She has made the decision to change the code status to Chemical code only, with no chest compressions or Intubation. She is also agreeable to pleasure feeds. Mariana from the Palliative Care team was present and participated in the discussion. Time Spent (mins): 20
[2020-07-18] MEDS ORDERED: Potassium Chloride 20 MEQ in Premix Bag 1 BAG IVPB SCH (17:30)
[2020-07-18] MEDS: Famotidine/PF 20 mg/2ml Vial SLOW IVP SCH (20:46)
[2020-07-19] MEDS: Dextrose 5% in Water 1,000 ML IV SCH (03:02)
[2020-07-19] MEDS: Piperacillin/Tazobactam 3.375 GM in Sodium Chloride 0.9% 100 ML IVPB SCH ×4 (03:03→19:59)
[2020-07-19 06:23] LABS: Anion Gap 14 mmol/L (10-20); BUN (Urea Nitrogen) 13 mg/dL (9.8-20.1); Calc. Creatinine Clearance 58 mL/min (70-130); Calcium 8.4 mg/dL (7.8-10.44); Carbon Dioxide 23 mmol/L (23-31); Chloride 110 mmol/L (98-107); Estimated GFR-MDRD Greater than 90; Glucose 162 mg/dL (83-110); Sodium 144 mmol/L (136-145)
[2020-07-19 06:27] LABS: Potassium 2.8 mmol/L (3.5-5.1)
[2020-07-19] MEDS ORDERED: Potassium Chloride 40 MEQ in Sodium Chloride 0.9% 250 ML 250 ML IV SCH (06:45)
[2020-07-19] MEDS ORDERED: D5 LR w/20 mEq KCL 1,000 ML IV SCH (07:45)
[2020-07-19] MEDS: Enoxaparin Sodium 30 MG/0.3 ML SYRINGE SC SCH (09:18)
--- NOTE | 2020-07-19 11:30 | PDOC.HOSPP ---
- Subjective Encounter Date: 07/19/20 Encounter Time: 11:27 Subjective: Ms. Ku was seen today in follow-up of respiratory failure due to pneumonia. She is essentially unchanged. - Objective Vital Signs & Weight: Vital Signs (12 hours) Temp Pulse Resp BP Pulse Ox 07/19/20 08:00 96 07/19/20 07:23 98.6 F 81 18 121/77 98 07/19/20 03:35 98.3 F 78 18 98 07/18/20 23:40 99.2 F 102 H 18 97 Weight Admit Weight 138 lb 8 oz Weight 138 lb 8 oz Most Recent Monitor Data Heart Rate from ECG 88 NIBP 117/62 NIBP BP-Mean 80 Respiration from ECG 26 SpO2 96 I&O: 07/18/20 07/19/20 07/20/20 06:59 06:59 06:59 Intake Total 1725 1500 Output Total 250 1625 Balance 1475 -125 Result Diagrams: 07/17/20 07:17 07/19/20 05:48 Hospitalist ROS - Medication Medications: Active Medications Generic Name Dose Route Start Last Admin Trade Name Freq PRN Reason Stop Dose Admin Acetaminophen 650 mg 07/16/20 16:58 07/16/20 19:59 Acetaminophen 650 Mg Suppository ND 650 mg Q4H PRN Administration Headache/Fever or Pain Enoxaparin Sodium 30 mg 07/17/20 09:00 07/19/20 09:18 Enoxaparin Sodium 30 Mg/0.3 Ml Syringe SC 30 mg 0900 LUIS Administration Famotidine 20 mg 07/16/20 21:00 07/18/20 20:46 Famotidine/Pf 20 Mg/2ml Vial SLOW IVP 20 mg 2100 LUIS Administration Piperacillin Sod/Tazobactam 100 mls @ 200 mls/hr 07/16/20 20:00 07/19/20 0 9:12 Sod 3.375 gm/ Sodium Chloride IVPB 100 mls 0200,0800,1400,2000 LUIS Administration Vancomycin HCl 1 gm/ Device 200 mls @ 200 mls/hr 07/18/20 16:00 07/18/20 16:13 IVPB 200 mls 1600 LUIS Administration Potassium Chloride 40 meq/ 270 mls @ 67.5 mls/hr 07/19/20 06:45 07/19/20 09:13 Sodium Chloride IV 07/19/20 12:00 270 mls NOW LUIS Administration Sodium Chloride 10 ml 07/19/20 09:00 07/19/20 09:43 Flush - Normal Saline 10 Ml Syringe IVF Not Given Q12HR LUIS - Exam Eye: PERRL, anicteric sclera Heart: RRR, no murmur, no gallops, no rubs, normal peripheral pulses Respiratory: rhonchi (+ rhonchi bilaterally, and rales at the bases) Gastrointestinal: soft, non-tender, non-distended, normal bowel sounds, no palpable masses, no hepatomegaly Extremities: no cyanosis, no edema Hosp A/P (1) Acute respiratory failure with hypoxia Code(s): J96.01 - ACUTE RESPIRATORY FAILURE WITH HYPOXIA Status: Acute (2) Pneumonia Code(s): J18.9 - PNEUMONIA, UNSPECIFIED ORGANISM Status: Acute (3) Hypernatremia Code(s): E87.0 - HYPEROSMOLALITY AND HYPERNATREMIA Status: Acute (4) Dementia Code(s): F03.90 - UNSPECIFIED DEMENTIA WITHOUT BEHAVIORAL DISTURBANCE Status: Chronic Qualifiers: Dementia type: unspecified type Dementia behavioral disturbance: without behavioral disturbance Qualified Code(s): F03.90 - Unspecified dementia without behavioral disturbance (5) HTN (hypertension) Code(s): I10 - ESSENTIAL (PRIMARY) HYPERTENSION Status: Chronic Qualifiers: Hypertension type: essential hypertension Qualified Code(s): I10 - Essential (primary) hypertension (6) CVA, old, 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 Will continue Zosyn, and Vancomycin until this is ar ranged. * continue supplemental oxygen * Hypernatremia- resolved- will change her fluids to an isotonic solution * HTN- blood pressure is stable * Back to the nursing facility with hospice once arranged
[2020-07-19 12:17] LABS: Anion Gap 19 mmol/L (10-20); BUN (Urea Nitrogen) 12 mg/dL (9.8-20.1); Calc. Creatinine Clearance 57 mL/min (70-130); Calcium 8.7 mg/dL (7.8-10.44); Carbon Dioxide 24 mmol/L (23-31); Chloride 108 mmol/L (98-107); Estimated GFR-MDRD Greater than 90; Glucose 95 mg/dL (83-110); Potassium 3.2 mmol/L (3.5-5.1); Sodium 148 mmol/L (136-145)
[2020-07-19] MEDS: Vancomycin 1 GM in Premix Bag 1 BAG IVPB SCH (15:44)
[2020-07-19] MEDS: Famotidine/PF 20 mg/2ml Vial SLOW IVP SCH (19:59)
[2020-07-19] MEDS: Acetaminophen 650 MG Suppository PR PRN (23:54)
[2020-07-20] MEDS: Piperacillin/Tazobactam 3.375 GM in Sodium Chloride 0.9% 100 ML IVPB SCH ×4 (02:26→19:45)
[2020-07-20] MEDS: Acetaminophen 650 MG Suppository PR PRN ×2 (05:30→21:01)
[2020-07-20 05:55] LABS: Bacteria/HPF None Seen HPF (None Seen); Bilirubin Negative (Negative); Blood, Urine Trace (Negative); Clarity Clear (Clear); Glucose, Urine (Dipstick) Normal (Negative); Ketone, Urine Negative (Negative); Leukocyte Negative Leu/uL (Negative); Nitrite Negative (Negative); Protein, Urine (Dipstick) Negative (Neg-Trace); RBC/HPF 0-3 HPF (0-3); Specific Gravity, Urine 1.021 (1.002-1.036); Squamous Epithelial 0-3 HPF (0-3); Urobilinogen Normal mg/dL (Less than 2); pH, Urine 5.5 (5.0-9.0)
[2020-07-20] MEDS: Enoxaparin Sodium 30 MG/0.3 ML SYRINGE SC SCH (08:34)
--- NOTE | 2020-07-20 09:12 | PDOC.HOSPP ---
- Subjective Encounter Date: 07/20/20 Encounter Time: 09:11 Subjective: Ms. Ku was seen today in follow-up of pneumonia, and dehydration. She is much more alert. She will follow you in the room, and appears like she is trying to communicate. - Objective Vital Signs & Weight: Vital Signs (12 hours) Temp Pulse Resp BP Pulse Ox 07/20/20 07:53 93 L 07/20/20 07:30 99.8 F H 92 20 152/72 H 93 L 07/20/20 06:26 99.6 F 07/20/20 05:30 160/81 H 07/20/20 04:00 100.7 F H 94 16 162/85 H 93 L 07/20/20 00:57 99.3 F 85 07/19/20 23:41 100.5 F H 97 18 150/82 H 95 Weight Admit Weight 138 lb 8 oz Weight 138 lb 8 oz Most Recent Monitor Data Heart Rate from ECG 88 NIBP 117/62 NIBP BP-Mean 80 Respiration from ECG 26 SpO2 96 I&O: 07/19/20 07/20/20 07/21/20 06:59 06:59 06:59 Intake Total 1500 Output Total 1625 1100 Balance -125 -1100 Result Diagrams: 07/17/20 07:17 07/19/20 11:57 Hospitalist ROS - Medication Medications: Active Medications Generic Name Dose Route Start Last Admin Trade Name Freq PRN Reason Stop Dose Admin Acetaminophen 650 mg 07/16/20 16:58 07/20/20 05:30 Acetaminophen 650 Mg Suppository SC 650 mg Q4H PRN Administration Headache/Fever or Pain Enoxaparin Sodium 30 mg 07/17/20 09:00 07/20/20 08:34 Enoxaparin Sodium 30 Mg/0.3 Ml Syringe SC 30 mg 0900 LUIS Administration Famotidine 20 mg 07/16/20 21:00 07/19/20 19:59 Famotidine/Pf 20 Mg/2ml Vial SLOW IVP 20 mg 2100 LUIS Administration Piperacillin Sod/Tazobactam 100 mls @ 200 mls/hr 07/16/20 20:00 07/20/20 08:33 Sod 3.375 gm/ Sodium Chloride IVPB 100 mls 0200,0800,1400,2000 LUIS Administration Vancomycin HCl 1 gm/ Device 200 mls @ 200 mls/hr 07/18/20 16:00 07/19/20 15:44 IVPB 200 mls 1600 LUIS Administration Potassium Chloride 20 meq/ 1,010 mls @ 75 mls/hr 07/19/20 10:45 07/19/20 14:3 8 Dextrose/Lactated Ringer's IV 1,010 mls .[id number] LUIS Administration Sodium Chloride 10 ml 07/19/20 09:00 07/20/20 08:36 Flush - Normal Saline 10 Ml Syringe IVF Not Given Q12HR LUIS - Exam Eye: PERRL, anicteric sclera Heart: RRR, no murmur, no gallops, no rubs, normal peripheral pulses Respiratory: rhonchi Gastrointestinal: soft, non-tender, non-distended, normal bowel sounds, no palpable masses, no hepatomegaly Extremities: no cyanosis, no edema Hosp A/P (1) Acute respiratory failure with hypoxia Code(s): J96.01 - ACUTE RESPIRATORY FAILURE WITH HYPOXIA Status: Acute (2) Pneumonia Code(s): J18.9 - PNEUMONIA, UNSPECIFIED ORGANISM Status: Acute (3) Hypernatremia Code(s): E87.0 - HYPEROSMOLALITY AND HYPERNATREMIA Status: Acute (4) Dementia Code(s): F03.90 - UNSPECIFIED DEMENTIA WITHOUT BEHAVIORAL DISTURBANCE Status: Chronic Qualifiers: Dementia type: unspecified type Dementia behavioral disturbance: without behavioral disturbance Qualified Code(s): F03.90 - Unspecified dementia without behavioral disturbance (5) HTN (hypertension) Code(s): I10 - ESSENTIAL (PRIMARY) HYPERTENSION Status: Chronic Qualifiers: Hypertension type: essential hypertension Qualified Code(s): I10 - Essential (primary) hypertension (6) CVA, old, 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 Awaiting arrangements * Hypernatremia- resolved * HTN- blood pressure is stable * Back to the nursing facility with hospice once arranged
--- NOTE | 2020-07-20 11:56 | PQF ---
CLINICAL DOCUMENTATION CLARIFICATION FORM: Dear Dr. WALT TAVAREZ Date: 07-20-20 Please exercise your independent, professional judgment in responding to the clarification form. Clinical indicators are provided on the bottom of this form for your review. Please check appropriate box(es) to clarify if the following diagnosis has been ruled in our ruled out: ASPIRATION PNEUMONIA [ X ] Ruled in diagnosis [ ] Continue to treat [ ] Resolved [ ] Ruled out diagnosis [ ] Other diagnosis [ ] Unable to determine In addition, please specify: Present on Admission (POA): [ X] Yes [ ] No [ ] Unable to determine For continuity of documentation, please document condition throughout progress notes and discharge summary. Thank You. To be completed by CDI/Coding staff for physician review: CLINICAL INDICATORS - SIGNS / SYMPTOMS / LABS / RESULTS AND LOCATION IN MR: H&P: SOB AND ASPIRATED AT THE NURSING FACILITY, ADVANCED DEMENTIA, SHE RESIDES AT [facility] AND THEY CALLED THE PTS DAUGHTER AFTER THE NOTED THAT SHE HAD AN EPISODE OF ASPIRATING. SHE ASPIRATED AND APPEARED TO BECOME DYSPNEIC AFTER THAT AND WAS TRANSFERRED TO OUR FACILITY. CHEST XRAY SUSPICIOUS FOR ASPIRATION PNEUMONIA PN DR. TAVAREZ 07-18-20: F/U PNEUMONIA , PROBABLE ASPIRATION PN DAYSI MANRIQUEZ 07-20-20: F/U PNEUMONIA RISK FACTORS / RESULTS AND LOCATION IN MR: H&P: SOB AND ASPIRATED AT THE NURSING FACILITY, ADVANCED DEMENTIA, SHE RESIDES AT [facility] AND THEY CALLED THE PTS DAUGHTER AFTER THE NOTED THAT SHE HAD AN EPISODE OF ASPIRATING. SHE ASPIRATED AND APPEARED TO BECOME DYSPNEIC AFTER THAT AND WAS TRANSFERRED TO OUR FACILITY. CHEST XRAY SUSPICIOUS FOR ASPIRATION PNEUMONIA PN DR. TAVAREZ 07-18-20: SHE HAS A WET SOUNDING COUGH. TREATMENTS / RESULTS AND LOCATION IN MR: MAR: 07-18-20: VANCOMYCIN IV, ZOSYN IV, IVF CDS Signature: Malinda Rosenbaum Phone #: [phone] Date: 07-20-20 This is a permanent part of the Medical Record [facility]
--- NOTE | 2020-07-20 12:14 | PQF ---
CLINICAL DOCUMENTATION CLARIFICATION FORM: Dear Dr. WALT TAVAREZ Date: 07-20-20 Please exercise your independent, professional judgment in responding to the clarification form. Clinical indicators are provided on the bottom of this form for your review. Please check appropriate box(es): [X ] Protein Calorie Malnutrition: [ ] Mild [ X ] Moderate [ ] Severe [ ] Other Malnutrition (please specify) [ ] Other diagnosis [ ] Unable to determine In addition, please specify: Present on Admission (POA): [X ] Yes [ ] No [ ] Unable to determine For continuity of documentation, please document condition throughout progress notes and discharge summary. Thank You. To be completed by CDI/Coding staff for physician review: CLINICAL INDICATORS - SIGNS / SYMPTOMS / LABS / RESULTS AND LOCATION IN MR: H&P: SOB AND ASPIRATED AT THE NURSING FACILITY, ADVANCED DEMENTIA, SHE RESIDES AT [facility] , NOTED THAT A COUPLE OF DAYS AGO SHE BASICALLY JUST STOPPED EATING AND TAKING ANYTHING P.O. THE NH HAD BEEN TRYING TO GIVE HER FOOD AND THEN THE MADE A DECISION TO GIVE IT A TRY WITH SOME DIETARY SHAKES. SHE WAS NOT EATING MUCH AND DAUGHTER SAYS SHE HAS LOST AT LEAST 10 POUNDS [employer] CONSULT 07-18-20: 10# weight loss reported by family, and patient with very reduced PO intake for several days per H&P. The patient weighed 168.2# in April 2019 per previous admit. mild temporalis and interosseous muscle wasting, mild buccal fat pad wasting, 17.7% weight loss x 14 months suggestive of mild malnutrition in the context of chronic illness RISK FACTORS / RESULTS AND LOCATION IN MR: [employer] CONSULT 07-18-20: advanced dementia, CVA with L side paralysis, HTN, GERD, seizure disorder, PAD, anxiety, depression, cholecystectomy, bowel surgery TREATMENT / RESULTS AND LOCATION IN MR [employer] CONSULT 07-18-20: 1. Continue NPO status. If patient is determined safe for PO intake, recommend Heart Healthy diet with textures per [employer]. 2. If patient is determined safe for PO intake, recommend Ensure Enlive TID to promote adequate intake. 3. If patient is not safe for PO intake, recommend TF with Jevity 1.2, 6 cans/day with minimal flushes before/after while D5 is running. Bolus TF is necessary d/t shortage or tubing for continuous TF.. If patient is determined safe for PO intake, recommend Ensure Enlive TID to promote adequate intake. Moderate Malnutrition (in acute illness) Energy Intake: <75% of estimated energy requirement for > 7 days Weight Loss: 1-2%/1 week; 5%/ 1 month; 7.5%/3 months Other: mild body fat loss; mild muscle mass loss; mild fluid accumulation; Severe Malnutrition (in acute illness) Energy Intake: = 50% of estimated energy requirement for = 5 days Weight Loss: >2%/1 week; >5%/1 month; >7.5%/3 months Other: moderate body fat loss; moderate muscle mass loss; moderate- severe fluid accumulation; measurably reduced safe deposit box rental clerk strength Moderate Malnutrition (in chronic illness) Energy Intake: <75% of estimated energy requirement for =1 month Weight Loss: 5%/1 month; 7.5%/3 months; 10%/6 months; 20%/1 year Other: mild body fat loss; mild muscle mass loss; mild fluid accumulation Severe Malnutrition (in chronic illness) Energy Intake: =75% of estimated energy requirement for =1 month Weight Loss: >5%/1 month; >7.5%/3 months; >10%/6 months; >20%/1 year Other: severe body fat loss; severe muscle mass loss; severe fluid accumulation; measurably reduced safe deposit box rental clerk strength CDS Signature: Malinda Robi Phone #: [phone] Date: [phone] This is a permanent part of the Medical Record [facility]
[2020-07-20 16:27] LABS: Vancomycin, Trough 6.8 ug/mL
[2020-07-20] MEDS: Vancomycin HCl 750 MG in Sodium Chloride 0.9% 250 ML 250 ML IVPB SCH (16:45)
[2020-07-20] MEDS: Vancomycin 1 GM in Premix Bag 1 BAG IVPB SCH (16:47)
[2020-07-20] MEDS: Famotidine/PF 20 mg/2ml Vial SLOW IVP SCH (20:01)
[2020-07-21] MEDS: Piperacillin/Tazobactam 3.375 GM in Sodium Chloride 0.9% 100 ML IVPB SCH ×3 (02:04→13:45)
[2020-07-21] MEDS: Vancomycin HCl 750 MG in Sodium Chloride 0.9% 250 ML 250 ML IVPB SCH (04:58)
[2020-07-21 07:27] VITALS: BP 164/85; TEMP 97.8
[2020-07-21] MEDS: Enoxaparin Sodium 30 MG/0.3 ML SYRINGE SC SCH (07:54)
--- NOTE | 2020-07-21 09:22 | PDOC.HOSPP ---
- Subjective Encounter Date: 07/21/20 Encounter Time: : Subjective: Ms. Ku was seen today in follow-up of probable aspiration pneumonia. She is much more alert. She appears comfortable. - Objective Vital Signs & Weight: Vital Signs (12 hours) Temp Pulse Resp BP Pulse Ox 07/21/20 08:00 96 07/21/20 07:21 97.8 F 80 16 164/85 H 96 07/21/20 04:00 97.6 F 75 16 163/68 H 98 07/21/20 00:00 98.5 F 76 18 142/72 H 96 Weight Admit Weight 138 lb 8 oz Weight 138 lb 8 oz Most Recent Monitor Data Heart Rate from ECG 88 NIBP 117/62 NIBP BP-Mean 80 Respiration from ECG 26 SpO2 96 I&O: 07/20/20 07/21/20 07/22/20 06:59 06:59 06:59 Intake Total 1200 120 Output Total 1100 1450 Balance -1100 -250 120 Result Diagrams: 07/17/20 07:17 07/19/20 11:57 Hospitalist ROS - Medication Medications: Active Medications Generic Name Dose Route Start Last Admin Trade Name Freq PRN Reason Stop Dose Admin Acetaminophen 650 mg 07/16/20 16:58 07/20/20 21:01 Acetaminophen 650 Mg Suppository ME 650 mg Q4H PRN Administration Headache/Fever or Pain Enoxaparin Sodium 30 mg 07/17/20 09:00 07/21/20 07:54 Enoxaparin Sodium 30 Mg/0.3 Ml Syringe SC 30 mg 0900 LUIS Administration Famotidine 20 mg 07/16/20 21:00 07/20/20 20:01 Famotidine/Pf 20 Mg/2ml Vial SLOW IVP 20 mg 2100 LUIS Administration Piperacillin Sod/Tazobactam 100 mls @ 200 mls/hr 07/16/20 20:00 07/21/20 07:53 Sod 3.375 gm/ Sodium Chloride IVPB 100 mls 0200,0800,1400,2000 LUIS Administration Potassium Chloride 20 meq/ 1,010 mls @ 75 mls/hr 07/19/20 10:45 07/21/20 02:04 Dextrose/Lactated Ringer's IV 1,010 mls .[id number] LUIS Administration Vancomycin HCl 750 mg/ Sodium 250 mls @ 250 mls/hr 07/20/20 17:00 07/21/20 04:58 Chloride IVPB 250 mls 0500,1700 LUIS Administration Sodium Chloride 10 ml 07/19/20 09:00 07/21/20 07:54 Flush - Normal Saline 10 Ml Syringe IVF 10 ml Q12HR LUIS Administration - Exam Eye: PERRL, anicteric sclera Heart: RRR, no murmur, no gallops, no rubs, normal peripheral pulses Respiratory: CTAB, no wheezes, no rales, no ronchi, normal chest expansion, no tachypnea Gastrointestinal: soft, non-tender, non-distended, normal bowel sounds, no palpable masses, no hepatomegaly Extremities: no cyanosis, no edema Hosp A/P (1) Acute respiratory failure with hypoxia Code(s): J96.01 - ACUTE RESPIRATORY FAILURE WITH HYPOXIA Status: Acute (2) Pneumonia Code(s): J18.9 - PNEUMONIA, UNSPECIFIED ORGANISM Status: Acute (3) Hypernatremia Code(s): E87.0 - HYPEROSMOLALITY AND HYPERNATREMIA Status: Acute (4) Dementia Code(s): F03.90 - UNSPECIFIED DEMENTIA WITHOUT BEHAVIORAL DISTURBANCE Status: Chronic Qualifiers: Dementia type: unspecified type Dementia behavioral disturbance: without behavioral disturbance Qualified Code(s): F03.90 - Unspecified dementia without behavioral disturbance (5) HTN (hypertension) Code(s): I10 - ESSENTIAL (PRIMARY) HYPERTENSION Status: Chronic Qualifiers: Hypertension type: essential hypertension Qualified Code(s): I10 - Esse ntial (primary) hypertension (6) CVA, old, 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 Awaiting arrangements * Pneumonia- she is on day #6 of Zosyn. She has significantly less upper airway noise. * She will be transition to Augmentin at discharge to complete 7 days of therapy * Hypernatremia- resolved * HTN- blood pressure is stable * Back to the nursing facility with hospice once arranged
--- NOTE | 2020-07-22 02:05 | DIS ---
DATE OF ADMISSION: 07/16/2020 DATE OF DISCHARGE: 07/21/2020 DISCHARGE DISPOSITION: Back to the [facility] on hospice. DISCHARGE MEDICATIONS: Include: 1. Augmentin extended release. 2. per 5 mL q.12 for five days. 3. Aspirin 81 mg daily. 4. Potassium chloride 20 mEq twice daily. 5. Plavix 75 mg daily. 6. Pepcid 20 mg daily. 7. Multivitamin with iron daily. 8. Keppra 500 mg q.a.m. and 250 at bedtime. 9. Docusate sodium 200 mg daily. 10. Carvedilol 3.125 mg p.o. daily. 11. Acyclovir 400 mg daily. CODE STATUS: Chemical code only. ALLERGIES: NO KNOWN DRUG ALLERGIES. HOSPITAL COURSE: Ms. Ku is a pleasant 84-year-old female, who was admitted to the hospital after she had an episode of aspiration in the nursing facility. She had essentially stopped eating and was then transferred to our facility. She was started on IV antibiotics for presumed aspiration pneumonia. She was also found to be hypernatremic and severely dehydrated. She was started on IV fluids and underwent free water replacement. Once her serum sodium was corrected, we were able to change her fluids. The concern was that she has advanced dementia and essentially has had previous admissions with dehydration and infection, and it is likely that this would continue. This was discussed with the patient, daughter, and the Palliative Care consult was also obtained. We explained to the patient's daughter that this is likely going to become an ongoing problem and that the natural history of this illness is for her to have persistent problems with oral intake. We discussed PEG tube placement versus pleasure feeds and palliative care and possible hospice. After some thought, the family decided on pleasure feeds and to send her back to the nursing facility with hospice care. Job ID: [id number]
--- NOTE | 2020-07-22 08:17 | PQF ---
CLINICAL DOCUMENTATION CLARIFICATION FORM: Dear : Lizandro Edwards Date / Time: 07/22/20 0846 Please exercise your independent, professional judgment in responding to the clarification form. Clinical indicators are provided on the bottom of this form for your review X ] Sepsis due to Aspiration Pneumonia [ ] Severe sepsis due to Aspiration Pneumonia with Acute Respiratory Failure [ ] Localized infection without sepsis [ ] Other diagnosis [ ] Unable to determine In addition, please specify: Present on Admission (POA): [ X ] Yes [ ] No [ ] Unable to determine Physician Signature: Date/Time: For continuity of documentation, please document condition throughout progress notes and discharge summary. Thank You. To be completed by CDI/Coding staff for physician review: Present Clinical Indicators - Signs / Symptoms / Labs Results and Location in Medical Record [X] WBC 8.2, Plt count 170, Band 28, Neutrophils 43 Laboratory 07/16 [X] Blood Culture: Staph Hominus Microbiology 07/16 [X] BP113/73, Pulse 108, Resp 53, O2 sat 92% Vital signs 07/16 [X] SIRS Scoring: Yes Pt did meet the criteria ED notes p3 [X] Chest X-ray Impression: Opacity RUL and RLL are suspicious for Pneumonia Imaging Dr Samuels 07/16 [X] Suspicious for aspiration Pneumonia H&P p1 07/16 Dr Edwards [X] Acute respiratory Failure with hypoxia HPN p3 04/16 Dr Edwards [X] Lactic Acid: 07/16=6.3 07/17=6.7 07/18=4.9 Labs 07/16 Present Risk Factors Results and Location in Medical Record [X] 84 year-old Female H&P p1 07/16 Dr Edwards [X] HTN H&P p1 07/16 Dr Edwards [X] CVA H&P p1 07/16 Dr Edwards [X] Advance Dementia H&P p1 07/16 Dr Edwards [X] Aspiration Pneumonia H&P p1 07/16 Dr Edwards [X] Moderate PCM Query response Present Treatments Results and Location in Medical Record [X] IV Vancomycin 1.25 gm DEC 27 [X] IVF NS 1L DEC 27 [X] IV Zosyn 3.375 DEC 27 [X] IV Cefepime 2 gm DEC 27 [X] Blood Culture Microbiology 07/16 [X] Chest X-ray Imaging Dr Samuels 07/16 [X] Venturi Mask 40 FiO2 Respiratory Panel 07/16 [facility] Signature: Iveth Gaines Phone #: [phone] Date/Time: 07/22/2020 0816 This is a permanent part of the Medical Record [facility]
[2020-07-23] MEDS ORDERED: cloNIDine 0.1mg/24 Hour PATCH TD SCH (06:00)
== END 2020-07-21 15:34 | DRG 871 ==
LOC: ERS 10:23 → IMCU/EMU 13:33 → T4-A 07-17 13:24
PROVIDERS: ADMIT Internal Medicine; ATTEND Internal Medicine
PROC: 3E0234Z Introduction of Serum, Toxoid and Vaccine into Muscle, Percutaneous Approach (ICD-10-PCS; principal; 2020-07-17)
DX: A41.9 Sepsis, unspecified organism (principal); J18.9 Pneumonia, unspecified organism; J69.0 Pneumonitis due to inhalation of food and vomit; J96.01 Acute respiratory failure with hypoxia; Z51.5 Encounter for palliative care; Z20.828 Contact with and (suspected) exposure to other viral communicable diseases; E87.0 Hyperosmolality and hypernatremia; I69.354 Hemiplegia and hemiparesis following cerebral infarction affecting left non-dominant side; E44.0 Moderate protein-calorie malnutrition; E86.0 Dehydration; K21.9 Gastro-esophageal reflux disease without esophagitis; F32.9 Major depressive disorder, single episode, unspecified; F41.9 Anxiety disorder, unspecified; F03.90 Unspecified dementia, unspecified severity, without behavioral disturbance, psychotic disturbance, mood disturbance, and anxiety; Z79.899 Other long term (current) drug therapy; Z23 Encounter for immunization; Z79.82 Long term (current) use of aspirin; Z79.02 Long term (current) use of antithrombotics/antiplatelets; I69.320 Aphasia following cerebral infarction; Z68.24 Body mass index [BMI] 24.0-24.9, adult
CPT/HCPCS: 36415; 71045; 80048; 80053; 80202; 81001; 81003; 81015; 83605; 83880; 84484; 85025; 87040; 87077; 87086; 87149; 87635; 90471; 90732; 93005; G0009; J0692; J1650; J2543; J3370; J3480; J3490; J7050; J7121; S0028; U0003